=== PATIENT | female | born 1950 | race Caucasian/White ===

== ENCOUNTER 2019-05-14 01:26 | Outpatient (CLI) | payer OTHER, SELFPAY ==
--- NOTE | 2019-05-14 12:00 | DI.MAMMO_ITS ---
EXAM: MG MAMMO SCREENING CLINICAL HISTORY: Screening,z12.39 TECHNIQUE: Bilateral full field digital CC and MLO mammographic images were obtained with 3D tomosyn thesis and utilizing computer aided detection (CAD). COMPARISON: Available for comparison. FINDINGS: Masses/Architectural Distortion: There is an asymmetric density in the outer right breast seen on the craniocaudad view. Microcalcifications: No suspicious pleomorphic-type are seen. Skin Thickening/Nipple Retraction: None. IMPRESSION: 1. Asymmetric density in the outer right breast on the craniocaudad view. 2. This area should be further evaluated with spot compression view. Ultrasound may be indicated at that time. BI-RADS Cat 0 - Assessment Incomplete: Need additional imaging evaluation Breast Density - Category B - Scattered areas of fibroglandular density A negative radiographic report should not delay biopsy if a dominant or clinically suspicious mass is present. Up to ten percent of cancers are not identified on mammography. A negative report may reinforce clinical impression. Adenosis and dense breasts may obscure an underlying neoplasm. False positive reports average 6 to 10%. Patient will receive a letter notifying them of these results.
== END 2019-05-14 01:46 ==
PROVIDERS: PCP Family Medicine; Visit Provider Obstetrics & Gynecology Gynecology
DX: Z12.31 Encounter for screening mammogram for malignant neoplasm of breast (principal); R92.8 Other abnormal and inconclusive findings on diagnostic imaging of breast
CPT/HCPCS: 77063; 77067

== ENCOUNTER 2019-05-20 00:29 | Outpatient (CLI) | payer OTHER, SELFPAY ==
--- NOTE | 2019-05-20 | DI.US_ITS ---
EXAM: MG MAMMO SCREEN CALL BACK UNI and right breast ultrasound CLINICAL HISTORY: F/U ABNL MAMMO, ASYMMETRIC DENSITY IN OUTER RT BREAST. TECHNIQUE: Craniocaudal and mediolateral oblique Full Field Digital Mammography views of the right b reast with Computer Aided Diagnosis followed by Tomosynthesis and right breast ultrasound. COMPARISON: Priors available for comparison. FINDINGS: Mammography/Tomosynthesis: Masses/Architectural Distortion: None seen. Microcalcifictions: No suspicious pleomorphic-type are seen. Skin Thickening/Nipple Retraction: None. Right breast US: Echotexture: Normal appearance of the glandular tissue. Shadowing: No suspicious foci. Cyst: None. Solid lesions: None seen. Ductal dilation: None. IMPRESSION: 1. No evidence of malignancy is noted. 2. Unless there is more urgent need, follow-up screening mammography is recommended, as per [place] [employer] guidelines. BI-RADS Cat 1 - Negative Breast Density - Category B - Scattered areas of fibroglandular density The findings were discussed with the patient on the date of the examination. A negative radiographic report should not delay biopsy if a dominant or clinically suspicious mass is present. Up to ten percent of cancers are not identified on mammography. A negative report may reinforce clinical impression. Adenosis and dense breasts may obscure an underlying neoplasm. False positive reports average 6 to 10%. Patient will receive a letter notifying them of these results.
== END 2019-05-20 00:49 ==
PROVIDERS: PCP Family Medicine; Visit Provider Obstetrics & Gynecology Gynecology
DX: Z12.31 Encounter for screening mammogram for malignant neoplasm of breast (principal); R92.8 Other abnormal and inconclusive findings on diagnostic imaging of breast; N64.59 Other signs and symptoms in breast
CPT/HCPCS: 76642; 77063; 77067

== ENCOUNTER 2019-07-14 09:32 | Outpatient (CLI) | payer OTHER, SELFPAY | END 2019-07-14 09:52 | PROVIDERS: PCP Family Medicine; Visit Provider Obstetrics & Gynecology Gynecology | DX: L65.8 Other specified nonscarring hair loss (principal) | CPT/HCPCS: 84443 ==

== ENCOUNTER 2020-01-27 02:05 | Outpatient (CLI) | payer OTHER, SELFPAY ==
[2020-01-27 13:15] LABS: ALT 26 U/L (14-59); AST 20 U/L (15-37); Albumin 3.8 g/dL (3.4-5.0); Alkaline Phosphatase 64 U/L (46-116); Anion Gap 7.5 mmol/L (3-11); BUN 15 mg/dL (7-18); Bilirubin, Total 0.3 mg/dL (0.2-1.0); CO2 27.5 mmol/L (21.0-32.0); Calculated LDL 209 mg/dL (<100); Chloride 101 mmol/L (98-107); Cholesterol 283 mg/dL (<200); Estimated GFR 49.25 (mL/min/1.73m2); Glucose 87 mg/dL (74-106); HDL Cholesterol 50 mg/dL (40-60); Potassium 4.2 mmol/L (3.5-5.1); Sodium 136 mmol/L (136-145); Triglyceride 124 mg/dL (<150)
== END 2020-01-27 02:25 ==
DX: Z00.00 Encounter for general adult medical examination without abnormal findings (principal); I10 Essential (primary) hypertension; E78.5 Hyperlipidemia, unspecified; K21.9 Gastro-esophageal reflux disease without esophagitis
CPT/HCPCS: 36415; 80053; 80061

== ENCOUNTER 2020-03-25 02:52 | Outpatient (CLI) | payer OTHER, SELFPAY ==
[2020-03-25 12:38] LABS: Anion Gap 7.7 mmol/L (3-11); BUN 19 mg/dL (7-18); CO2 28.3 mmol/L (21.0-32.0); CREATININE 1.16 mg/dL (0.55-1.02); Calcium 9.2 mg/dL (8.5-10.1); Chloride 97 mmol/L (98-107); Estimated GFR 46.32 (mL/min/1.73m2); Glucose 90 mg/dL (74-106); Potassium 3.7 mmol/L (3.5-5.1); Sodium 133 mmol/L (136-145)
== END 2020-03-25 03:12 ==
DX: N28.9 Disorder of kidney and ureter, unspecified (principal)
CPT/HCPCS: 36415; 80048

== ENCOUNTER 2020-05-18 02:05 | Outpatient (CLI) | payer OTHER, SELFPAY ==
--- NOTE | 2020-05-18 07:15 | DI.MAMMO_ITS ---
EXAM: MG MAMMO SCREENING CLINICAL HISTORY: screening,Z12.39 TECHNIQUE: Bilateral full field digital CC and MLO mammographic images were obtained with 3D tomosyn thesis and utilizing computer aided detection (CAD). COMPARISON: Available for comparison. FINDINGS: Masses/Architectural Distortion: None seen. Stable asymmetry in the outer right breast on the CC view . Microcalcifications: No suspicious pleomorphic-type are seen. Skin Thickening/Nipple Retraction: None. IMPRESSION: 1. No significant interval change with no specific features of malignancy noted. 2. Unless there is more urgent need, screening mammography is recommended, as per [place] [employer] guidelines. BI-RADS Category 1 - Negative Breast Density - Category C - Heterogeneously dense Breast density category C or D implies that the patient has dense breast tissue. Dense breast tissue is very common and is not abnormal but dense breast tissue can make it harder to find cancer on a ma mmogram. Also, dense breast tissue may increase their breast cancer risk. This information about the result of the mammogram report was provided to the patient to raise their awareness. Use this report when you speak with the patient about their risks for breast cancer, which includes their family hist ory. At that time, you may recommend for more screening tests (Ultrasound or MRI) as they might be us eful based on their risk. A negative radiographic report should not delay biopsy if a dominant or clinically suspicious mass is present. Up to ten percent of cancers are not identified on mammography. A negative report may reinforce clinical impression. Adenosis and dense breasts may obscure an underlying neoplasm. False positive reports average 6 to 10%. Patient will receive a letter notifying them of these results.
== END 2020-05-18 02:25 ==
DX: Z12.31 Encounter for screening mammogram for malignant neoplasm of breast (principal)
CPT/HCPCS: 77063; 77067

== ENCOUNTER 2021-04-19 02:00 | Outpatient (CLI) | payer OTHER, SELFPAY ==
[2021-04-19 10:26] LABS: ALT 28 U/L (14-59); AST 22 U/L (15-37); Albumin 3.8 g/dL (3.4-5.0); Alkaline Phosphatase 65 U/L (46-116); Anion Gap 7.4 mmol/L (3-11); BUN 21 mg/dL (7-18); Bilirubin, Total 0.5 mg/dL (0.2-1.0); CO2 27.6 mmol/L (21.0-32.0); CREATININE 1.1 mg/dL (0.55-1.02); Calcium 9.3 mg/dL (8.5-10.1); Chloride 96 mmol/L (98-107); Glucose 79 mg/dL (74-106); Potassium 4.2 mmol/L (3.5-5.1); Sodium 131 mmol/L (136-145)
== END 2021-04-19 02:01 | disposition home or self-care (01) ==
LOC: LBO 02:00
DX: I10 Essential (primary) hypertension (principal); N28.9 Disorder of kidney and ureter, unspecified
CPT/HCPCS: 36415; 80053

== ENCOUNTER 2021-05-05 02:08 | Outpatient (CLI) | payer OTHER, SELFPAY ==
[2021-05-05 12:25] LABS: Anion Gap 4.8 mmol/L (3-11); BUN 18 mg/dL (7-18); CO2 27.2 mmol/L (21.0-32.0); CREATININE 1.1 mg/dL (0.55-1.02); Calcium 9.1 mg/dL (8.5-10.1); Chloride 98 mmol/L (98-107); Glucose 88 mg/dL (74-106); Potassium 4.1 mmol/L (3.5-5.1); Sodium 130 mmol/L (136-145)
== END 2021-05-05 02:09 | disposition home or self-care (01) ==
LOC: LBO 02:08
PROVIDERS: Visit Provider Emergency Medicine
DX: E87.1 Hypo-osmolality and hyponatremia (principal)
CPT/HCPCS: 36415; 80048

== ENCOUNTER 2021-05-19 01:28 | Outpatient (CLI) | payer OTHER, SELFPAY ==
--- NOTE | 2021-05-19 07:30 | DI.MAMMO_ITS ---
Exam(s) MAMMO SCREENING EXAM: MAMMO SCREENING CLINICAL HISTORY: screening,z12.39 TECHNIQUE: Mammograms were interpreted according to the usual protocol including computer analysis w [employer] CAD system, tomosynthesis and C-view imaging. COMPARISON: FINDINGS: The breasts are heterogeneously dense. No dominant mass or clumped microcalcification is identified in either breast. There is a new retroareolar 10 millimeter well-circumscribed nodule seen in the ri ght breast on the MLO view only comparison with prior examinations including May 2020. Breast ultr asound is suggested for further evaluation. No other significant change seen. IMPRESSION: New retroareolar right breast nodularity which is likely benign but indeterminate. Right breast ult rasound requested for further evaluation. BI-RADS Category 0 - Assessment Incomplete: Need additional imaging evaluation Breast Density - Category C - Heterogeneously dense
== END 2021-05-19 01:48 ==
DX: Z12.31 Encounter for screening mammogram for malignant neoplasm of breast (principal); R92.8 Other abnormal and inconclusive findings on diagnostic imaging of breast
CPT/HCPCS: 77063; 77067

== ENCOUNTER 2021-08-22 04:11 | Outpatient (CLI) | payer OTHER, SELFPAY ==
[2021-08-22 13:26] LABS: ALT 25 U/L (14-59); Anion Gap 9.3 mmol/L (3-11); BUN 22 mg/dL (7-18); CO2 23.7 mmol/L (21.0-32.0); CREATININE 1.2 mg/dL (0.55-1.02); Calcium 8.9 mg/dL (8.5-10.1); Chloride 101 mmol/L (98-107); Estimated GFR 44.41 (mL/min/1.73m2); Glucose 82 mg/dL (74-106); Potassium 4.2 mmol/L (3.5-5.1); Sodium 134 mmol/L (136-145)
[2021-08-22 15:31] LABS: Calculated LDL 104 mg/dL (<100); Cholesterol 178 mg/dL (<200); HDL Cholesterol 61 mg/dL (40-60); Triglyceride 65 mg/dL (<150)
== END 2021-08-22 04:12 | disposition home or self-care (01) ==
LOC: LOS 04:11
PROVIDERS: Visit Provider Family Medicine
DX: I10 Essential (primary) hypertension (principal); E78.5 Hyperlipidemia, unspecified; E87.1 Hypo-osmolality and hyponatremia
CPT/HCPCS: 36415; 80048; 80061; 84460

== ENCOUNTER 2022-02-16 01:38 | Outpatient (CLI) | payer OTHER, SELFPAY ==
[2022-02-16 12:22] LABS: HCT 35.9 % (36.0-46.0); HGB 11.9 g/dL (11.2-15.7); MCHC 33.1 % (32.0-36.0); MCV 97 fL (80-95); MPV 9.8 fL (8.0-11.0); Platelet Count 309 10^3/uL (130-400); RBC 3.72 10^6/uL (3.93-5.22); RDW 12.8 % (11.7-14.6); WBC 5.85 10^3/uL (4.4-10.8)
[2022-02-16 12:24] LABS: Bilirubin Negative (Negative); Blood Negative (Negative); Clarity Clear (Clear); Glucose Negative (Negative); Ketones Negative (Negative); Leukocyte Esterase Negative (Negative); Nitrite Negative (Negative); Specific Gravity 1.025 (1.005-1.025); Urobilinogen 0.2 EU/dL (Up TO 0.2)
[2022-02-16 12:25] LABS: Sodium, Urine 79 mmol/L
[2022-02-16 12:32] LABS: Iron 71 ug/dL (50-170); Total Iron Binding Capacity 270 ug/dL (250-450); Transferrin Sat 26 % (15-50)
[2022-02-16 12:45] LABS: Anion Gap 7.1 mmol/L (3-11); BUN 20 mg/dL (7-18); CO2 28.9 mmol/L (21.0-32.0); CREATININE 1.2 mg/dL (0.55-1.02); Calcium 9.5 mg/dL (8.5-10.1); Chloride 98 mmol/L (98-107); Estimated GFR 48.39 (mL/min/1.73m2); Glucose 70 mg/dL (74-106); Potassium 3.9 mmol/L (3.5-5.1); Sodium 134 mmol/L (136-145); TSH (W/Ref FT4) 2.11 uIU/mL (0.36-3.74)
[2022-02-16 12:46] LABS: Ferritin 287 ng/mL (8-252)
[2022-02-16 13:21] LABS: Lab Add On Test DONE
[2022-02-16 14:02] LABS: Vitamin B12 439 pg/mL (193-986)
== END 2022-02-16 01:39 | disposition home or self-care (01) ==
LOC: LOS 01:39
PROVIDERS: Family Medicine; PCP Nurse Practitioner Family; Visit Provider Family Medicine
DX: E78.5 Hyperlipidemia, unspecified (principal); E87.1 Hypo-osmolality and hyponatremia; I10 Essential (primary) hypertension; R53.83 Other fatigue; D64.9 Anemia, unspecified
CPT/HCPCS: 36415; 80048; 85027; 81003; 82607; 82728; 83540; 83550; 84300; 84443

== ENCOUNTER 2022-02-28 02:07 | Outpatient (CLI) | payer OTHER, SELFPAY ==
[2022-03-13 14:10] LABS: Specimen WB Whole Blood
== END 2022-02-28 02:08 | disposition home or self-care (01) ==
LOC: LBO 02:08
PROVIDERS: PCP Nurse Practitioner Family; Visit Provider Family Medicine
DX: R79.89 Other specified abnormal findings of blood chemistry (principal)
CPT/HCPCS: 36415; 81256

== ENCOUNTER 2022-05-02 12:15 | Outpatient (CLI) | payer OTHER, SELFPAY ==
--- NOTE | 2022-05-02 12:15 | RT.EKG_ITS ---
APPROVED REPORT Exam: Resting ECG Reason for Exam: chest pain Patient Location: O HR:62 bpm ECG Measurements Heart Rate 62 AXIS KS 179 P 69 QRSd 101 QRS 15 QT 403 T 43 QTc 410 Conclusion Sinus rhythm...normal P axis, V-rate 50- 99 Normal Electrocardiogram RSR' in V1 or V2, probably normal variant...small R' only
== END 2022-05-02 12:16 | disposition home or self-care (01) ==
LOC: DI.CM 12:16
PROVIDERS: PCP Nurse Practitioner Family; Visit Provider Nurse Practitioner Family
DX: R07.9 Chest pain, unspecified (principal)
CPT/HCPCS: 93010

== ENCOUNTER 2022-05-02 21:39 | Outpatient (REF) | payer OTHER, SELFPAY ==
[2022-05-02 21:55] LABS: Abs Immature Grans 0.02 10^3/uL (0.0-0.06); Absolute Basophil Count 0.04 10^3/uL (0.0-0.2); Absolute Eosinophil Count 0.21 10^3/uL (0.0-0.7); Absolute Lymphocyte Count 1.61 10^3/uL (1.2-3.4); Absolute Monocyte Count 0.71 10^3/uL (0.1-0.8); Absolute Neutrophil Count 2.31 10^3/uL (1.2-6.7); Basophils % 0.8; Eosinophils % 4.3; HCT 36.3 % (36.0-46.0); Immature Grans % 0.4; Lymphocytes % 32.9; MCHC 33.1 % (32.0-36.0); MCV 94 fL (80-95); MPV 9.9 fL (8.0-11.0); Monocytes % 14.5; Neutrophils % 47.1; Platelet Count 362 10^3/uL (130-400); RBC 3.87 10^6/uL (3.93-5.22)
[2022-05-02 22:03] LABS: ALT 25 U/L (14-59); AST 22 U/L (15-37); Alkaline Phosphatase 62 U/L (46-116); Amylase 75 U/L (25-115); Anion Gap 9.1 mmol/L (3-11); BUN 22 mg/dL (7-18); Bilirubin, Total 0.4 mg/dL (0.2-1.0); CO2 24.9 mmol/L (21.0-32.0); CREATININE 1.2 mg/dL (0.55-1.02); Calcium 9.9 mg/dL (8.5-10.1); Chloride 103 mmol/L (98-107); Estimated GFR 48.39 (mL/min/1.73m2); Glucose 92 mg/dL (74-106); Lipase 68 U/L (16-77); Potassium 4.7 mmol/L (3.5-5.1); Sodium 137 mmol/L (136-145); Total Protein 7.1 g/dL (6.4-8.2)
== END 2022-05-02 21:40 | disposition home or self-care (01) ==
LOC: LBN 21:39
PROVIDERS: PCP Nurse Practitioner Family; Visit Provider Nurse Practitioner Family
DX: R10.9 Unspecified abdominal pain (principal)
CPT/HCPCS: 80053; 83690; 82150; 85025

== ENCOUNTER 2023-04-11 13:23 | Outpatient (CLI) | payer OTHER, SELFPAY ==
[2023-04-11 13:13] LABS: ALT 25 U/L (14-59); AST 20 U/L (15-37); Albumin 3.6 g/dL (3.4-5.0); Alkaline Phosphatase 59 U/L (46-116); Anion Gap 6.2 mmol/L (3-11); BUN 19 mg/dL (7-18); Bilirubin, Total 0.5 mg/dL (0.2-1.0); CO2 27.8 mmol/L (21.0-32.0); CREATININE 1.2 mg/dL (0.55-1.02); Calcium 9.4 mg/dL (8.5-10.1); Calculated LDL 119 mg/dL (<100); Chloride 102 mmol/L (98-107); Cholesterol 197 mg/dL (<200); Estimated GFR 48.09 (mL/min/1.73m2); Glucose 92 mg/dL (74-106); HDL Cholesterol 64 mg/dL (40-60); Potassium 4.3 mmol/L (3.5-5.1); Sodium 136 mmol/L (136-145); Total Protein 7.2 g/dL (6.4-8.2); Triglyceride 72 mg/dL (<150)
== END 2023-04-11 13:24 | disposition home or self-care (01) ==
LOC: LBO 13:24
PROVIDERS: PCP Nurse Practitioner Family; Visit Provider Nurse Practitioner Family
DX: E78.5 Hyperlipidemia, unspecified (principal)
CPT/HCPCS: 36415; 80053; 80061

== ENCOUNTER → 2023-04-23 01:45 | Outpatient (CLI) | payer OTHER, SELFPAY ==
--- NOTE | 2023-04-23 08:00 | DI.MAMMO_ITS ---
Exam(s) MAMMO SCREENING EXAM: MAMMO SCREENING CLINICAL HISTORY: screening,Z12.39 TECHNIQUE: Mammograms were interpreted according to the usual protocol including computer analysis w [employer] CAD system, tomosynthesis and C-view imaging. COMPARISON: 2013 through 2021 FINDINGS: The breasts are composed of heterogeneously dense fibroglandular densities, Breast Density category C . No suspicious masses or suspicious microcalcifications are seen. No skin thickening or abnormal axill shahbaz lymph nodes are seen. There has been no significant change from prior exams. IMPRESSION: BI-RADS Category 1, Negative mammogram. Yearly screening mammography is recommended. Breast Density Category C, heterogeneously Dense. The mammogram demonstrates the patient's breast tissue is dense. Dense breast tissue is very common a nd is not abnormal but dense breast tissue can make it harder to find cancer on a mammogram. Also, de nse breast tissue may increase breast cancer risk. This information about the result of the mammogram report was provided to the patient to raise their awareness. Use this report when you speak with the patient about their risks for breast cancer, which includes their family history. At that time, you may recommend additional screening tests (Ultrasound or MRI) as they might be useful based on their r isk. A negative radiographic report should not delay biopsy if a dominant or clinically suspicious mass is present. Up to ten percent of cancers are not identified on mammography. A negative report may reinforce clinical impression. Adenosis and dense breasts may obscure an underlying neoplasm. False positive reports average 6 to 10%.
== END ==
PROVIDERS: PCP Nurse Practitioner Family; Visit Provider Nurse Practitioner Family
DX: Z12.31 Encounter for screening mammogram for malignant neoplasm of breast (principal)
CPT/HCPCS: 77063; 77067

== ENCOUNTER 2023-11-05 01:55 | Outpatient (CLI) | payer OTHER, SELFPAY ==
--- OUTSIDE RECORDS SUMMARY | 2023-11-05 01:57 | XMS_ITS | Encounter Summary ---
Author Organization [facility] [place] [address] Care Team Providers Care Zinc Miner Name Role Phone Ignacio Liang HAYDEN Primary Care Provider Encounter Details Date Type Department Care Team (Late st Contact Info) Description 05/20/2019 Ancillary Procedure Radiology Library [place] [facility] [address] Armani Brenner MD [address] [place] [address] [address] [place] [address] Social History Tobacco Use Types Packs/Day Years Used Date Smoking Tobacco: Never Sex and Gender Information Value Date Recorded Sex Assigned at Not on file Gender Identity Not on file Sexual Orientation Not on file documented as of this encounter Plan of Treatment Not on file documented as of this encounter Procedures Procedure Name Priority Date/Time Associated Diagnosis Comments FILM LIBRARY-STORAGE ONLY US BREAST Routine 05/20/2019 12:00 AM EDT documented in this encounter Results * Film Library Storage Only US Breast (05/20/2019 12:00 AM EDT) Narrative [facility] - 05/26/2021 12:16 PM EDT This exam is auto-finalizing. It's purpose is for storage only. Armani Brenner MD IMG FILM LIBRARY OR DERABLES [place], [place] documented in this encounter Visit Diagnoses Not on filedocumented in this encounter Care Teams Zinc Miner Relationship Specialty Start Date End Date Liang Pierre DO [address] [place] [address] [address] [place] [address] PCP - General 02/01/10 03/22/22 documented as of this encounter
--- OUTSIDE RECORDS SUMMARY | 2023-11-05 01:57 | XMS_ITS | Continuity of Care Document ---
Author Name [facility] Organization [facility] Care Team Providers Care Road Cutter Name Role Phone [facility] Unavailable Unavailable Social History Combined list of available smoking, tobacco, and other social history from Department of Defense and Veterans Affairs facilities. Social History Type Response Date Comment Sourc e This section is an empty social history section. [facility]
--- OUTSIDE RECORDS SUMMARY | 2023-11-05 01:57 | XMS_ITS | Encounter Summary ---
Author Organization [facility] [place] [address] Care Team Providers Care Software Applications Architect Name Role Phone Ignacio, Liang HAYDEN Primary Care Provider Encounter Details Date Type Department Care Team (Late st Contact Info) Description 10/26/2015 Ancillary Procedure Radiology Library [place] [facility] [place] [address] Armani Brenner MD [address] [place] [address] [address] [place] [address] Social History Tobacco Use Types Packs/Day Years Used Date Smoking Tobacco: Never Sex and Gender Information Value Date Recorded Sex Assigned at Not on file Gender Identity Not on file Sexual Orientation Not on file documented as of this encounter Plan of Treatment Not on file documented as of this encounter Procedures Procedure Name Priority Date/Time Associated Diagnosis Comments FILM LIBRARY STORAGE ONLY MAMMO Routine 10/26/2015 12:00 AM EDT documented in this encounter Results * Film Library- Storage Only Mammo (10/26/2015 12:00 AM EDT) Narrative [facility] - 05/26/2021 12:18 PM EDT This exam is auto-finalizing. It's purpose is for storage only. Armani Brenner MD IMG FILM LIBRARY OR DERABLES [place], [place] documented in this encounter Visit Diagnoses Not on filedocumented in this encounter Care Teams Software Applications Architect Relationship Specialty Start Date End Date Liang Pierre DO [address] [place] [address] [address] [place] [address] PCP - General 02/01/10 03/22/22 documented as of this encounter
--- OUTSIDE RECORDS SUMMARY | 2023-11-05 01:57 | XMS_ITS | Encounter Summary ---
Author Organization [facility] [place] [address] Care Team Providers Care Nurse Advisor Name Role Phone Unavailable Primary Care Provider Unavailabl e Encounter Details Date Type Department Care Team (Late st Contact Info) Description 12/31/2003 Ancillary Procedure Radiology Library [place] [address] Armani Brenner MD [address] [place] [address] Social History Tobacco Use Types Packs/Day Years Used Date Smoking Tobacco: Never Assessed Sex and Gender Information Value Date Recorded Sex Assigned at Not on file Gender Identity Not on file Sexual Orientation Not on file documented as of this encounter Plan of Treatment Not on file documented as of this encounter Procedures Procedure Name Priority Date/Time Associated Diagnosis Comments FILM LIBRARY STORAGE ONLY MAMMO Routine 12/31/2003 12:00 AM EDT documented in this encounter Results * Film Library- Storage Only Mammo (12/31/2003 12:00 AM EDT) Narrative [facility] - 05/26/2021 1:41 PM EDT This exam is auto-finalizing. It's purpose is for storage only. Armani Brenner MD IMG FILM LIBRARY OR DERABLES [place], [place] documented in this encounter Visit Diagnoses Not on filedocumented in this encounter
--- OUTSIDE RECORDS SUMMARY | 2023-11-05 01:57 | XMS_ITS | Encounter Summary ---
Author Organization [facility] [place] [address] Care Team Providers Care Signal System Testing Maintainer Name Role Phone Liang Pierre DO Primary Care Provider [phone] Encounter Details Date Type Department Care Team (Late st Contact Info) Description 05/26/2021 Telephone Hematology and Oncology at [facility] [place] [id number] Jenae Sandoval Social History Tobacco Use Types Packs/Day Years Used Date Smoking Tobacco: Never Sex and Gender Information Value Date Recorded Sex Assigned at Not on file Gender Identity Not on file Sexual Orientation Not on file documented as of this encounter Miscellaneous Notes * Telephone Encounter - Jenae Sandoval - 05/26/2021 10:07 AM EDT Maranda Tran 1950 [id number] Referring provider: Armani Brenner Date of Referral: 05.26.2021 Please review outside breast imaging dated: 05.25.2021 Reason for exam and clinical history: Right breast solid nodule 6 o'clcock Category: 4 Questions to be answered: ?more imaging, ? BX Sending Institution: [facility] Patient would like treatment at: [facility] Call pt at: Home Phone Not on file. documented in this encounter Plan of Treatment Not on file documented as of this encounter Visit Diagnoses Not on filedocumented in this encounter Care Teams Signal System Testing Maintainer Relationship Specialty Start Date End Date Liang Pierre DO [address] [place] [address] [address] [place] [address] PCP - General 02/01/10 03/22/22 documented as of this encounter
--- OUTSIDE RECORDS SUMMARY | 2023-11-05 01:57 | XMS_ITS | Encounter Summary ---
Author Organization [facility] [place] [address] Care Team Providers Care Brake Repairer Air Name Role Phone Ignacio Liang HAYDEN Primary Care Provider Encounter Details Date Type Department Care Team (Late st Contact Info) Description 05/19/2021 Ancillary Procedure Radiology Library [place] [address] Armani Brenner MD [address] [place] [address] [address] [place] [address] Social History Tobacco Use Types Packs/Day Years [...] Comments FILM LIBRARY STORAGE ONLY MAMMO Routine 05/19/2021 12:00 AM EST documented in this encounter Results * Film Library- Storage Only Mammo (05/19/2021 12:00 AM EST) Narrative [facility] - 05/26/2021 12:15 PM EDT This exam is auto-finalizing. It's purpose is for storage only. Armani Brenner MD IMG FILM LIBRARY OR DERABLES [place], [place] documented in this encounter Visit Diagnoses Not on filedocumented in this encounter Care Teams Brake Repairer Air Relationship Specialty Start Date End Date Liang Pierre DO [address] [place] [address] [address] [place] [address] PCP - General 02/01/10 03/22/22 documented as of this encounter
--- OUTSIDE RECORDS SUMMARY | 2023-11-05 01:57 | XMS_ITS | Encounter Summary ---
Author Organization [facility] [place] [address] Care Team Providers Care Associate Marketing Manager Name Role Phone Ignacio Liang HAYDEN Primary Care Provider [phone] Encounter Details Date Type Department Care Team (Late st Contact Info) Description 05/14/2019 Ancillary Procedure Radiology Library [place] [address] Armani Brenner MD [address] [place] [address] [address] [place] [address] Social History Tobacco Use Types Packs/Day Years [...] Comments FILM LIBRARY STORAGE ONLY MAMMO Routine 05/14/2019 12:00 AM EST documented in this encounter Results * Film Library- Storage Only Mammo (05/14/2019 12:00 AM EST) Narrative [facility] - 05/26/2021 12:17 PM EDT This exam is auto-finalizing. It's purpose is for storage only. Armani Brenner MD IMG FILM LIBRARY OR DERABLES [place], [place] documented in this encounter Visit Diagnoses Not on filedocumented in this encounter Care Teams Associate Marketing Manager Relationship Specialty Start Date End Date Liang Pierre DO [address] [place] [address] [address] [place] [address] PCP - General 02/01/10 03/22/22 documented as of this encounter
--- OUTSIDE RECORDS SUMMARY | 2023-11-05 01:57 | XMS_ITS | Encounter Summary ---
Author Organization [facility] [place] [address] Care Team Providers Care Termite Control Service Representative Name Role Phone Unavailable Primary Care Provider Unavailabl e Encounter Details Date Type Department Care Team (Late st Contact Info) Description 02/14/2007 Ancillary Procedure Radiology Library [place] [facility] [place] [address] Armani Brenner MD [address] [place] [address] Social History Tobacco Use Types Packs/Day Years [...] Comments FILM LIBRARY STORAGE ONLY MAMMO Routine 02/14/2007 12:00 AM EST documented in this encounter Results * Film Library- Storage Only Mammo (02/14/2007 12:00 AM EST) Narrative [facility] - 05/26/2021 1:40 PM EDT This exam is auto-finalizing. It's purpose is for storage only. Armani Brenner MD IMG FILM LIBRARY OR DERABLES [place], [place] documented in this encounter Visit Diagnoses Not on filedocumented in this encounter
--- OUTSIDE RECORDS SUMMARY | 2023-11-05 01:57 | XMS_ITS | Encounter Summary ---
Author Organization [facility] [place] [address] Care Team Providers Care Marketing Analytics Specialist Name Role Phone Liang Pierre DO Primary Care Provider [phone] Reason for Visit * (Routine) - Closed Specialty Diagnoses / Procedures Referred By Elfego sarmiento Referred To Contact Radiology Diagnoses Breast nodule Procedures Request for 2nd read Mammo Armani Brenner MD [address] [place] [address] Referral ID Status Reason Start Date Expiration Date Visits Re quested Visits Authorized [id number] Closed 05/26/2021 05/26/2022 1 1 Encounter Details Date Type Department Care Team (Late st Contact Info) Description 05/26/2021 2:25 PM EDT Ancillary [place] [address] Armani Brenner MD [address] [place] [address] Breast nodule Social History Tobacco Use Types Packs/Day Years Used Date Smoking Tobacco: Never Sex and Gender Information Value Date Recorded Sex Assigned at Not on file Gender Identity Not on file Sexual Orientation Not on file documented as of this encounter Plan of Treatment Not on file documented as of this encounter Procedures Procedure Name Priority Date/Time Associated Diagnosis Comments REQUEST FOR 2ND READ MAMMO Routine 05/26/2021 2:09 PM EDT Breast nodule documented in this encounter Results * Request for 2nd read Mammo (05/26/2021 2:09 PM EDT) Anatomical Region Laterality Modality SO Impressions 05/26/2021 3:18 PM EDT BI-RADS Category 0: Incomplete-Need Additional Imaging Evaluation and/or Prior Mammograms for Comparison ??1 cm retroareolar mass 1 cm from the nipple RECOMMENDATION: Additional mammographic views and ultrasound with biopsy if appropriate Please note: The interpretation of the [facility] Breast Imaging Radiologist subspecialist may differ from the original radiologists interpretation. This is usually not due to a deficiency of the original interpreting radiologist, rather due to the greater skill level afforded by sub-specialization in the field and/or reasonable variations in interpretations. If you have a concern regarding the D-H interpretation you may contact the [facility] at . Thank you for letting us participate in the care of this patient. ??If you are a health care provider and have any questions regarding this report, please contact the number below. ??For patients who have questions please contact the health child care attendant that requested your imaging first. ? Electronically signed by: Victorina Zhang MD, [facility] ([phone]), at 05/26/2021 3:18 PM Narrative 05/26/2021 3:18 PM EDT INTERPRETATION OF OUTSIDE BREAST IMAGING I have been asked to consult on this patient by Dr. Brenner because he/she believes a review of this study may change or alter the care of this patient. STUDIES FROM: [facility] DATES: Bilateral screening mammograms 05/19/2021. Limited ultrasound of the RIGHT breast from 05/25/2021 CLINICAL HISTORY: Right breast solid nodule 6 o'clock; CAT 4; Sending Institution [facility]; Date of exam [id number]; I believe a reinterpretation of this exam may alter care of Patient. Yes; Right breast solid nodule 6 o'clock; CAT 4; ? More imaging; ? BX. ?? COMPARISONS: Multiple priors, the last 2020 TECHNIQUE: Bilateral CC, bilateral MLO, 3-D imaging was used FINDINGS: The breasts are of scattered fibroglandular density LEFT breast: Normal and unchanged RIGHT breast: On the MLO view only there is a 1 cm round density in the retroareolar area which appears to be change since prior mammograms. 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 Ultrasound images show an approximately 0.9 cm oval well-defined uniformly hypoechoic mass with an echogenic capsule and increased through transmission at 6:00 1 cm from the nipple but this appears to be fairly deep within the breast tissue. I am not sure if the mammographically observed lesion is the same as the ultrasound observed lesion and would recommend that we obtain coned compression and true lateral views of the RIGHT breast to assess if the retroareolar mass is real. If it is and concordant with the ultrasound findings we will then perform ultrasound-guided biopsy. If the ultrasound abnormality is concordant with the stable deep central mammographic abnormality, no further management as needed Procedure Note Victorina Zhang MD - 05/26/2021 INTERPRETATION OF OUTSIDE BREAST IMAGING I have been asked to consult on this patient by Dr. Brenner becausehe/she believes a review of this study may change or alter the care of thispatient. STUDIES FROM: [facility] DATES: Bilateral screening mammograms 05/19/2021. Limited ultrasound of theRIGHT breast from 05/25/2021 CLINICAL HISTORY: Right breast solid nodule 6 o'clock; CAT 4; Sending Institution [facility]; Date of exam [id number]; I believe a reinterpretation ofthis exam may alter care of Patient. Yes; Right breast solid nodule 6 o'clock;CAT 4; ? More imaging; ? BX. COMPARISONS: Multiple priors, the last 2020 TECHNIQUE: Bilateral CC, bilateral MLO, 3-D imaging was used FINDINGS: The breasts are of scattered fibroglandular density LEFT breast: Normal and unchanged RIGHT breast: On the MLO view only there is a 1 cm round density in the retroareolar area which appears to be change since prior mammograms. 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 Deshawn not sure if the mammographically observed lesion is the same as theultrasound observed lesion and would recommend that we obtain coned compression andtrue lateral views of the RIGHT breast to assess if the retroareolar mass connor. If it is and concordant with the ultrasound findings we will then perform ultrasound-guided biopsy. If the ultrasound abnormality is concordant withthe stable deep central mammographic abnormality, no further management asneeded IMPRESSION BI-RADS Category 0: Incomplete-Need Additional Imaging Evaluation and/orPrior Mammograms for Comparison 1 cm retroareolar mass 1 cm from the nipple RECOMMENDATION: Additional mammographic views and ultrasound with biopsy if appropriate Please note: The interpretation of the [facility] BreastImaging Radiologist subspecialist may differ from the original radiologists interpretation. This is usually not due to a deficiency of the original interpreting radiologist, rather due to the greater skill level affordedby sub-specialization in the field and/or reasonable variations ininterpretations. If you have a concern regarding the -H interpretation [facility] at . Thank you for letting us participate in the care of this patient. If youare a health care provider and have any questions regarding this report,please contact the number below. For patients who have questions please contactthe health child care attendant that requested your imaging first. Armani Brenner MD IMG OUTSIDE INTERPR ETATION ORDERABLES documented in this encounter Visit Diagnoses Diagnosis Breast nodule Other (abnormal) findings on radiological examination of breast documented in this encounter Care Teams Marketing Analytics Specialist Relationship Specialty Start Date End Date Liang Pierre DO [address] [place] [address] [address] [facility] [address] [place] [address] PCP - General 02/01/10 03/22/22 documented as of this encounter
--- OUTSIDE RECORDS SUMMARY | 2023-11-05 01:57 | XMS_ITS | Encounter Summary ---
[place] [address] Care Team Providers Care Psychiatric Technician Name Role Phone Omayra Esposito CURLY Primary Care Provider [phone] Reason for Referral * Consultation (Routine) - Closed Specialty Diagnoses / Procedures Referred By Elfego sarmiento Referred To Contact Genetics Diagnoses Other specified abnormal findings of blood chemistry Johnny Horn MD [address] [place] [address] Pearl Chavez, [address] [address] Referral ID Status Reason Start Date Expiration Date V isits Requested Visits Authorized [id number] Closed Consult, Test & Treat PCP Updated and/or Approved 03/23/2022 03/23/2023 6 6 Encounter Details Date Type Department Care Team (Late st Contact Info) Description 03/23/2022 Transcribe Orders eD Incoming Referrals [phone] Johnny Horn MD [address] [place], [place] [address] Other specified abnormal findings of blood chemistry Social History Tobacco Use Types Packs/Day Years Used Date Smoking Tobacco: Never Sex and Gender Information Value Date Recorded Sex Assigned at Not on file Gender Identity Not on file Sexual Orientation Not on file documented as of this encounter Plan of Treatment Scheduled Referrals Name Type Priority Associated Diagnoses Orde r Schedule Referral to Genetics Outpatient Referral Routine Other specified abnormal findings of blood chemistry Ordered: 03/23/2022 documented as of this encounter Visit Diagnoses Diagnosis Other specified abnormal findings of blood chemistry documented in this encounter Care Teams Psychiatric Technician Relationship Specialty Start Date End Date Omayra Esposito RD [address] [address] PCP - General Dietitian 03/23/22 documented as of this encounter
--- OUTSIDE RECORDS SUMMARY | 2023-11-05 01:57 | XMS_ITS | Encounter Summary ---
Author Organization [facility] Address [address] [place] [address] Care Team Providers Care Armament Mechanic Name Role Phone Unavailable Primary Care Provider Unavailabl e Encounter Details Date Type Department Care Team (Late st Contact Info) Description 03/14/2007 Results Only [facility] - [facility] conversion [address] [place] [address] Abebe Avila MD [address] [place] [address] Social History Tobacco Use Types Packs/Day Years Used Date Smoking Tobacco: Never Assessed Sex and Gender Information Value Date Recorded Sex Assigned at Not on file Gender Identity Not on file Sexual Orientation Not on file documented as of this encounter Plan of Treatment Not on file documented as of this encounter Procedures Procedure Name Priority Date/Time Associated Diagnosis Comments SURGICAL PATHOLOGY Routine 03/14/2007 0:00 EST documented in this encounter Results * SURGICAL PATHOLOGY (03/14/2007 0:00 EST) Pathology Report: SURGICAL PATHOLOGY REPORT Reports generated via electronic interface contain original data; however they are lacking the format of the original report. Caution should be taken when reading/interpreti ng unformatted reports. Name: ? SUMAN TRAN ? Accession #: ? [id number] ? : ? 1950 (Age: 56) ??F ? Collect Date: ? 03/14/2007 ? Location: ? [facility] ? Receive Date: ? 03/15/2007 ? Provider: ABEBE AVILA MD Copy to: SALLIE JEAN BAPTISTE DO ? Final Pathologic Diagnosis: ? Colon, splenic flexure, polyp, biopsies: - Fragments of hyperplastic polyp. ?? Document reviewed and electronically signed by: MANI RAMOS MD Report ??Date: 03/18/2007 12:52 By the signature above, the attending physician certifies that he/she has personally conducted a gross and/or microscopic examination of the described specimens and rendered or confirmed the above diagnosis. Specimen(s) Received: ? Bx splenic flexure polyp Clinical History: ? Screening; hx LLQ and lower left flank pain Gross Description: ? Received in Hollande's fixative labelled Marc and splenic flexure bx polyp are three betts-pink irregular soft tissue fragments which average 0.2 x 0.1 x 0.1 cm. ??Submitted entirely in one cassette. ??(Dr. Castorena)/[facility] End of Report ELOISE LAUREANO 03/14/2007 03/15/2007 13: 58 EST Abebe Avila MD PATHOLOGY ORDERABLE S [facility] [address] [place] [address] documented in this encounter Visit Diagnoses Not on filedocumented in this encounter
--- OUTSIDE RECORDS SUMMARY | 2023-11-05 01:57 | XMS_ITS | Referral Summary ---
Author Organization [facility] Address [address] [place] [address] Care Team Providers Care Sweet Pickle Maker Name Role Phone Marcio Rao MD Primary Care Provider [phone] Social History Tobacco Use Types Packs/Day Years Used Date Smoking Tobacco: Never Assessed Interpersonal Safety Answer Date Record ed Physically Hurt Never 10/12/2019 Verbally Threaten Not on file 10/12/2019 Sex and Gender Information Value Date Recorded Sex Assigned at Not on file Gender Identity Not on file Sexual Orientation Not on file Plan of Treatment Not on file Care Teams Sweet Pickle Maker Relationship Specialty Start Date End Date Marcio Rao MD PCP - General 03/20/17
--- OUTSIDE RECORDS SUMMARY | 2023-11-05 01:57 | XMS_ITS | Encounter Summary ---
[facility] [place] [id number] Care Team Providers Care Ditching Machine Operator Name Role Phone Omayra Esposito RD Primary Care Provider [phone] Encounter Details Date Type Department Care Team (Latest Contact Info) Description 08/14/2022 Travel Social History Tobacco Use Types Packs/Day Years Used Date Smoking Tobacco: Never Sex and Gender Information Value Date Recorded Sex Assigned at Not on file Gender Identity Not on file Sexual Orientation Not on file documented as of this encounter Plan of Treatment Not on file documented as of this encounter Visit Diagnoses Not on filedocumented in this encounter Care Teams Ditching Machine Operator Relationship Specialty Start Date End Date Omayra Esposito RD [address] [address] PCP - General Dietitian 03/23/22 documented as of this encounter
--- OUTSIDE RECORDS SUMMARY | 2023-11-05 01:57 | XMS_ITS | Encounter Summary ---
Author Organization [facility] Address [address] [place] [address] Care Team Providers Care Lead Mason Tender Name Role Phone Unavailable Primary Care Provider Unavailabl e Encounter Details Date Type Department Care Team (Late st Contact Info) Description 03/14/2001 Results Only [facility] - Map conversion [address] [place] [address] Marcio Adair MD [address] [place] [phone] Social History Tobacco Use Types Packs/Day Years Used Date Smoking Tobacco: Never Assessed Sex and Gender Information Value Date Recorded Sex Assigned at Not on file Gender Identity Not on file Sexual Orientation Not on file documented as of this encounter Plan of Treatment Not on file documented as of this encounter Procedures Procedure Name Priority Date/Time Associated Diagnosis Comments SURGICAL PATHOLOGY Routine 03/14/2001 0:00 EST documented in this encounter Results * SURGICAL PATHOLOGY (03/14/2001 0:00 EST) Pathology Report: SURGICAL PATHOLOGY REPORT Reports generated via electronic interface contain original data; however they are lacking the format of the original report. Caution should be taken when reading/interpretin g unformatted reports. Name: ? JANEE SUMAN ? Accession #: ? [id number] ? : ? 1950 (Age: 50) ??F ? Collect Date: ? 03/14/2001 ? Location: ? [facility] ? Receive Date: ? 03/15/2001 ? Provider: CAREN ADAIR MD Copy to: SALLIE JEAN BAPTISTE DO SALLIE HARRIS MD ? Final Pathologic Diagnosis: ? Tissue at esophagogastric junction, biopsy: 1. ?Squamous mucosa with features suggestive of gastroesophageal reflux. 2. ?No columnar mucosa identified. Comment: ? Few intraepithelial eosinophils are identified. ??(Dr. Freeman)/ljn Document reviewed and electronically signed by: Cristino Freeman MD Report ??Date: 03/18/2001 16:52 By the signature above, the attending physician certifies that he/she has personally conducted a gross and/or microscopic examination of the described specimens and rendered or confirmed the above diagnosis. Specimen(s) Received: ? Bx EG jct Clinical History: ? Dyspepsia ??normal EG + D Gross Description: ? Received in Hollande' s fixative labelled Candia and EG junction is a betts-thorne, friable, 0.3 x 0.2 x0.2 cm soft tissue fragment. ??The specimen is entirely submitted in one cassette. ??(Dayton Wheeler)/dtl End of Report ELOISE LAUREANO 03/14/2001 03/15/2001 9:3 1 EST Marcio Adair MD PATHOLOGY ORDERABLES [facility] [address] [place] [address] documented in this encounter Visit Diagnoses Not on filedocumented in this encounter
--- OUTSIDE RECORDS SUMMARY | 2023-11-05 01:57 | XMS_ITS | Clinical Summary ---
Author Organization [facility] [place] [address] Care Team Providers Care Bulk Picker Name Role Phone Omayra Esposito RD Primary Care Provider [phone] Allergies Active Allergy Reactions Criticality Noted Date Comments Adhesive Bandage CIS - Rash Alcohol CIS - Unknown Cis Free Text Allergy rubbbing alcohol. CIS - Rash Povidone-Iodine CIS - Unknown Medications Medication Sig Dispensed Refills Start Date End Date Status hydrochlorothiazide (HYDRODIURIL) 25 mg tablet 25mg, PO, Once daily 08/04/2009 Active doxycycline (VIBRA-TABS) 100 mg tablet 100 MG = 1 Tablet(s), PO, Once daily 08/04/2009 Active RANITIDINE HCL (ZANTAC ORAL) 08/04/2009 Active ibuprofen (ADVIL;MOTRIN) 600 mg tablet 08/04/2009 Active metroNIDAZOLE (METROCREAM) 0.75 % creamIndications:Pe rioral dermatitis Apply topically. Once or twice daily for perioral dermatitis 15 g 1 04/11/2011 Active hydrOXYzine (ATARAX) 10 mg tabletIndications:D ermatitis Take by mouth. 1 or 2 tabs as needed at bedtime for itching. 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 Itching on forearms 04/11/2011 Perioral dermatitis 04/11/2011 Immunizations Name Administration Dates Next Due TD Adult 06/07/1999 Family History Medical History Relation Comments Breast Cancer Neg Hx Social History Tobacco Use Types Packs/Day Years Used Date Smoking Tobacco: Never Sex and Gender Information Value Date Recorded Sex Assigned at Not on file Gender Identity Not on file Sexual Orientation Not on file Plan of Treatment Health Maintenance Due Date Last Done Comments CT Colonography 1950 Colonoscopy 1950 Colorectal Cancer Screening 1950 FIT DNA 1950 FIT 1950 Sigmoidoscopy (10 year) with FIT yearly 1950 Sigmoidoscopy 1950 Hepatitis C Screening 1968 Tdap adult 1969 Breast Cancer Share Decision Needed 1990 Breast Cancer screening 1990 Zoster vaccine (1 of 2) 2000 Advance Directive 2005 Tetanus vaccine 06/06/2009 06/07/1999 Bone Density Scan 11/04/2015 Pneumoccocal Vaccine: 65+ (1 of 1 - PCV) 11/04/2015 Covid-19 Vaccine (1 - season) 2022 Influenza (Flu) vaccine (1 o f 1 - Influenza standard series) 11/11/2023 Care Teams Bulk Picker Relationship Specialty Start Date End Date Omayra Esposito RD [address] [address] PCP - General Dietitian 03/23/22
--- OUTSIDE RECORDS SUMMARY | 2023-11-05 01:57 | XMS_ITS | Encounter Summary ---
Author Organization [facility] Address [address] [place] [address] Care Team Providers Care Ice Maker Name Role Phone Liang Pierre DO Primary Care Provider [phone] Encounter Details Date Type Department Care Team (Latest Contact Info) Description 03/19/2017 11:49 EST - 03/19/2017 23:59 EST Hospital Encounter [address] [address] Unknown, Provider, Discharge Disposition: Home or Self Care Social History Tobacco Use Types Packs/Day Years Used Date Smoking Tobacco: Never Assessed Sex and Gender Information Value Date Recorded Sex Assigned at Not on file Gender Identity Not on file Sexual Orientation Not on file documented as of this encounter Discharge Disposition Disposition Code Departure Means Destination Home or Self [facility] documented in this encounter Plan of Treatment Not on file documented as of this encounter Visit Diagnoses Not on filedocumented in this encounter Care Teams Ice Maker Relationship Specialty Start Date End Date Liang Pierre DO [address] [place] [address] PCP - General 01/19/15 03/19/17 documented as of this encounter
--- OUTSIDE RECORDS SUMMARY | 2023-11-05 01:57 | XMS_ITS | Encounter Summary ---
Author Organization [facility] [place] [address] Care Team Providers Care Animal Assisted Therapist Name Role Phone Unavailable Primary Care Provider Unavailabl e Encounter Details Date Type Department Care Team (Late st Contact Info) Description 01/10/2006 Ancillary Procedure Radiology [place] [address] Armani Brenner MD [address] [place] [phone] Social History Tobacco Use Types Packs/Day Years [...] Comments FILM LIBRARY STORAGE ONLY MAMMO Routine 01/10/2006 12:00 AM EST documented in this encounter Results * Film Library- Storage Only Mammo (01/10/2006 12:00 AM EST) Narrative [facility] - 05/26/2021 1:40 PM EDT This exam is auto-finalizing. It's purpose is for storage only. Armani Brenner MD IMG FILM LIBRARY OR DERABLES [place], [place] documented in this encounter Visit Diagnoses Not on filedocumented in this encounter
--- OUTSIDE RECORDS SUMMARY | 2023-11-05 01:57 | XMS_ITS | Encounter Summary ---
Author Organization [facility] [place] [address] Care Team Providers Care Insurance Claim Auditor Name Role Phone Liang Pierre DO Primary Care Provider Encounter Details Date Type Department Care Team (Late st Contact Info) Description 05/20/2019 12:05 AM EDT Ancillary Procedure [place]iology [place] [address] Armani Brenner MD [address] [place] [id number] Social History Tobacco Use Types Packs/Day Years [...] Comments FILM LIBRARY STORAGE ONLY MAMMO Routine 05/20/2019 12:05 AM EDT documented in this encounter Results * Film Library- Storage Only Mammo (05/20/2019 12:05 AM EDT) Narrative [facility] - 05/26/2021 12:17 PM EDT This exam is auto-finalizing. It's purpose is for storage only. Armani Brenner MD IMG FILM LIBRARY OR DERABLES [place], [place] documented in this encounter Visit Diagnoses Not on filedocumented in this encounter Care Teams Insurance Claim Auditor Relationship Specialty Start Date End Date Liang Pierre DO [address] [place] [address] [address] [place] [address] PCP - General 02/01/10 03/22/22 documented as of this encounter
--- OUTSIDE RECORDS SUMMARY | 2023-11-05 01:57 | XMS_ITS | Encounter Summary ---
Author Organization [facility] Address [facility] [place] [address] Care Team Providers Care Resource Room Special Education Teacher Name Role Phone Liang Pierre DO Primary Care Provider [phone] Encounter Details Date Type Department Care Team (Latest Contact Info) Description 06/03/2021 12:43 PM EDT - 06/03/2021 11:59 PM EDT Hospital En[place] [address] Victorina Zhang MD [facility] [place] [address] Abnormal finding on breast imaging Discharge Disposition: Home Social History Tobacco Use Types Packs/Day Years Used Date Smoking Tobacco: Never Sex and Gender Information Value Date Recorded Sex Assigned at Not on file Gender Identity Not on file Sexual Orientation Not on file documented as of this encounter Medications at Time of Discharge Medication Sig Dispensed Refills Start Date End Date metroNIDAZOLE (METROCREAM) 0.75 % creamIndications:Perior al dermatitis Apply topically. Once or twice daily for perioral dermatitis 15 g 1 04/11/2011 hydrOXYzine (ATARAX) 10 mg tabletIndications:Vale titis Take by mouth. 1 or 2 tabs as needed at bedtime for itching. 30 tablet 1 04/11/2011 hydrochlorothiazide (HYDRODIURIL) 25 mg tablet 25mg, PO, Once daily 08/04/2009 doxycycline (VIBRA-TABS) 100 mg tablet 100 MG = 1 Tablet(s), PO, Once daily 08/04/2009 RANITIDINE HCL (ZANTAC ORAL) 08/04/2009 ibuprofen (ADVIL;MOTRIN) 600 mg tablet 08/04/2009 documented as of this encounter Plan of Treatment Not on file documented as of this encounter Procedures Procedure Name Priority Date/Time Associated Diagnosis Comments MAMMO BREAST US LIMITED RIGHT Routine 06/03/2021 2:00 PM EDT Abnormal finding on breast imaging documented in this encounter Results * US Breast Limited Right (06/03/2021 2:00 PM EDT) Anatomical Region Laterality Modality Breast Right Mammography Impressions 06/03/2021 2:29 PM EDT No mammographic or directed ultrasound evidence of malignancy with attention to the right lower central breast. Resume annual screening. BI-RADS Category 2: Benign Findings Regular screening mammograms starting between age 40 and 50 reduces the risk of from breast cancer. * ??All screening tests have both risks and benefits. These risks and benefits should be assessed for each individual patient through discussion with their provider to determine their preferred breast cancer screening schedule. * ??Women should report any breast changes to a health care provider right away. * ??Some women, because of their family history, a genetic tendency, or other factors, should be screened with annual breast MRI as well as with mammograms. (The number of women who fall into this category is very small). Patients and health care providers should discuss the history of each patient to decide if earlier screening and/or breast MRI are appropriate. * ??Screening should continue as long as a woman is in good health and is expected to live 10 years or longer. * ??Screening mammography may not detect 10-15% of breast cancers. Thank you for letting us participate in the care of this patient. ??If you are a health care provider and have any questions regarding this report, please contact the number below. ??For patients who have questions please contact the health resident care aide that requested your imaging first. ? Thank you for letting us participate in the care of this patient. ??If you are a health care provider and have any questions regarding this report, please contact the number below. ??For patients who have questions please contact the health resident care aide that requested your imaging first. ? Electronically signed by: Clarisa Cárdenas MD, [facility] ([phone]), at 06/03/2021 2:29 PM Narrative 06/03/2021 2:29 PM EDT EXAMINATION: MAMMO DIAGNOSTIC CAD AND ALYSON RIGHT CLINICAL HISTORY: Abnormal finding on breast imaging TECHNIQUE: Spot compression CC, spot compression MLO and true lateral views were obtained of the right breast. 2-D direct digital capture, 3-D tomosynthesis and computer aided detection (CAD) were used.. I personally performed high-resolution ultrasound of the right lower central breast following the technologist. COMPARISON: Outside imaging 05/19/2021, 05/25/2021 FINDINGS: There is no persistent mass in the right lower central breast. There is stable duct ectasia. There is a stable oval mass in the right lower central to slightly outer quadrant posterior third. Directed ultrasound demonstrates no evidence of discrete solid lesion, abnormal acoustical shadowing, or cyst. The questioned finding reflects sonographic evidence of a duct overlying benign fat locule which is not three-dimensional. Specifically there is no intraductal mass or suspicious solid mass in the right lower central breast anterior third. Victorina Zhang MD IMG MAMMO ORDERABLES documented in this encounter Visit Diagnoses Diagnosis Abnormal finding on breast imaging Other (abnormal) findings on radiological examination of breast documented in this encounter Care Teams Resource Room Special Education Teacher Relationship Specialty Start Date End Date Liang Pierre DO [address] [place] [address] PCP - General 02/01/10 03/22/22 documented as of this encounter
--- OUTSIDE RECORDS SUMMARY | 2023-11-05 01:57 | XMS_ITS | Encounter Summary ---
Author Organization [facility] [place] [address] Care Team Providers Care Hotel Baggage Handler Name Role Phone Omayra Esposito CURLY Primary Care Provider [phone] Reason for Visit * Consultation (Routine) - Closed Specialty Diagnoses / Procedures Referred By Elfego sarmiento Referred To Contact Genetics Diagnoses Other specified abnormal findings of blood chemistry Johnny Horn MD [address] [place] [address] Pearl Chavez LGC [address] [place] [id number] Referral ID Status Reason Start Date Expiration Date V isits Requested Visits Authorized [id number] Closed Consult, Test & Treat PCP Updated and/or Approved 03/23/2022 03/23/2023 6 6 Encounter Details Date Type Department Care Team (Latest Contact Info) Description 08/14/2022 2:00 PM EDT Clinical Support Medical Genetics at [address] [address] Pearl Chavez LGC [address] [place] [id number] Carrier of hemochromatosis HFE gene mutation Social History Tobacco Use Types Packs/Day Years Used Date Smoking Tobacco: Never Sex and Gender Information Value Date Recorded Sex Assigned at Not on file Gender Identity Not on file Sexual Orientation Not on file documented as of this encounter Progress Notes * Pearl Chavez LGC - 08/14/2022 2:00 PM EDT Maranda Tran is a 71 y.o. 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 Due to this history a genetic consultation was recommended to review these results and their implications. She came to the visit today with her (Eric). She told me she inquired with her PCP if shecould be anemic - which prompted iron studies and this testing. I don't have her ferratin or TBIC labs on file - but she states she is often low/anemic. Regarding these HFE results - she stated they were not reviewed with her in detail which prompted the referral to learn more about what they mean for her. A three generation pedigree was obtained at the visit today. The family history was not notable forindividuals with iron overload. 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 Hemochromatosis is a common condition. There are several classifications of hemochromatosis. Clinical hemochromatosis is an individual who is known to have end organ damage due to iron overload. Biochemical hemochromatosis is when the only evidence an individual has of iron overload is in their blood. These two forms of hemochromatosis may not necessarily be genetic. Secondary iron overload may result from ingested iron in foods, cookware, and medicines, as well as parenteral iron from iron injections Hereditary hemochromatosis is a form of hemochromatosis when an individual has both iron overload and gene mutations that are known to increase the risk to develop iron overload. There are at least six types of hereditary hemochromatosis, which are classified depending on the age of onset and other factors such as genetic cause and mode of inheritance. The genetic cause for each type is as follows: type 1- HFE, type 2- HAMP or HFE2/HJV, type 3- TFR2, type 4- ICS08C8, type 5- FTH1, and type 6- FTL. Hemochromatosis is inherited in an autosomal recessive manner through pathogenic variants in theHFE, HAMP, HFE2/HJV, or TFR2 genes or an autosomal dominant manner through pathogenic variants in the BXR04L9, FTH1, or FTL genes. HFE variants account for approximately 90% of clinical hemochromatosis. We know that there are two mutations, C282Y and H63D that are associated with HFE hemochromatosis. In individuals with two copies of the C282Y the risk for clinical symptoms due to iron overload is approximately 5%. While individuals with one copy of C282Y and one copy of H63D may have evidence of iron overload in their blood, the risk for developing clinically significant iron overload is approximately 1%. Individuals withtwo H63D variants are not considered to have HFE hemochromatosis and be at increased risk for developing clinical iron overload. In some rare individuals with a clinical or biochemical diagnosis of hereditary hemochromatosis, only one gene change is identified, which indicates that they may have changes in other genes, additional mutations within this same gene or environmental factors that are causing their iron overload. These individuals then are not considered to have HFE hemochromatosis. Complications in HFE hemochromatosis occur most often due to external risk factors or medical conditions that in combination with the genetic mutations result in iron overload. Iron overload is the result of abnormally high absorption of iron by the gut which results in excessive storage of iron in various organs, particularly in the liver, skin, pancreas, heart, joints, and testes. If left untreated, this can lead to abdominal pain, weakness, fatigue, weight loss, liver disease, heart disease,arthritis and diabetes. If iron overload is detected early and treated by periodic blood donation, the above symptoms can be prevented. All individuals at high risk should have periodic screening for iron overload so that if it is indicated, treatment and additional evaluation can start as soon as possible. In the absence of iron overload, no additional imagining or evaluations are recommended. High risk individuals should also avoid taking a multivitamin that contains iron, iron supplements, vitamin C supplements and uncooked seafood. Additionally excessive alcohol should also be avoided. 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 We discussed that this does not infer increased risk for iron overload. Reviewed recessive inheritance and implications for other family members also at increased risk to carry this HFE gene variant. If other first degree relatives are interested in testing they should request referral to genetics provider in their area. If she or her other providers have concerns regarding her iron level (such as anemia) they can monitor routinely with labs. Patient expresses good understanding of what we discussed today and asked many thoughtful questions. No follow up planned, though I encouraged her to contact me with additional concerns. Pearl Chavez MS, [facility] Licensed Genetic Counselor [phone] This was a 32-minute consultation, of which 32 minutes of the visit were spent in [id number] discussions regarding the clinical diagnosis and care planning. Family agreed with the plans discussed. documented in this encounter Plan of Treatment Scheduled Referrals Name Type Priority Associated Diagnoses Orde r Schedule Referral to Genetics Outpatient Referral Routine Other specified abnormal findings of blood chemistry Ordered: 03/23/2022 documented as of this encounter Visit Diagnoses Diagnosis Carrier of hemochromatosis HFE gene mutation documented in this encounter Care Teams Hotel Baggage Handler Relationship Specialty Start Date End Date Omayra Esposito RD [address] [address] PCP - General Dietitian 03/23/22 documented as of this encounter
--- OUTSIDE RECORDS SUMMARY | 2023-11-05 01:57 | XMS_ITS | Encounter Summary ---
Author Organization [facility] [place] [address] Care Team Providers Care Telephone Services Sales Representative Name Role Phone Unavailable Primary Care Provider Unavailabl e Encounter Details Date Type Department Care Team (Late st Contact Info) Description 01/02/2005 Ancillary Procedure Radiology Library [place] [address] Armani Brenner MD [address] [place] [id number] Social History Tobacco Use Types Packs/Day Years [...] Comments FILM LIBRARY STORAGE ONLY MAMMO Routine 01/02/2005 12:00 AM EDT documented in this encounter Results * Film Library- Storage Only Mammo (01/02/2005 12:00 AM EDT) Narrative [facility] - 05/26/2021 1:40 PM EDT This exam is auto-finalizing. It's purpose is for storage only. Armani Brenner MD IMG FILM LIBRARY OR DERABLES [place], [place] documented in this encounter Visit Diagnoses Not on filedocumented in this encounter
--- OUTSIDE RECORDS SUMMARY | 2023-11-05 01:57 | XMS_ITS | Encounter Summary ---
Author Organization [facility] Address [address] [place] [address] Care Team Providers Care Ceramic Worker Name Role Phone Liang Pierre DO Primary Care Provider [phone] Encounter Details Date Type Department Care Team (Late st Contact Info) Description 03/19/2017 Results Only [facility] [phone] Karlos Guevara MD [address] [place] [address] [address] [place], [place] [id number] Social History Tobacco Use Types Packs/Day Years Used Date Smoking Tobacco: Never Assessed Sex and Gender Information Value Date Recorded Sex Assigned at Not on file Gender Identity Not on file Sexual Orientation Not on file documented as of this encounter Plan of Treatment Not on file documented as of this encounter Procedures Procedure Name Priority Date/Time Associated Diagnosis Comments SURGICAL PATHOLOGY Routine 03/19/2017 16 :42 EST documented in this encounter Results * SURGICAL PATHOLOGY (03/19/2017 16:42 EST) Pathology Report: SURGICAL PATHOLOGY REPORT Reports generated via electronic interface contain original data; however they are lacking the format of the original report. Caution should be taken when reading/interpret ing unformatted reports. Name: ? SUMAN TRAN ? Accession #: ? [id number] ? : ? 1950 (Age: 66) ??F ? Collect Date: ? 03/19/2017 ? Location: ? [facility] ? Receive Date: ? 03/19/2017 ? Provider: KARLOS GUEVARA MD Copy to: SPARKLE SINGLETON MD ? Final Pathologic Diagnosis: A. COLON, TRANSVERSE POLYP, BIOPSY: - ??Fragments of hyperplastic polyp. B. COLON, DESCENDING POLYP, BIOPSY: - ??Colonic mucosa with surface hyperplastic changes. - ??Deeper levels examined. Document reviewed and electronically signed by: KAM BARCLAY MD Report ??Date: 03/21/2017 11:49 By the signature above, the attending physician certifies that he/she has personally conducted a gross and/or microscopic examination of the described specimens and rendered or confirmed the above diagnosis. Specimen(s) Received: A. ??Transverse colon polyp B. ??Descending colon polyp Clinical History: Hx colon polyps Gross Description: A. ?Received in formalin labelled with proper patient identification (initials N, G) and transverse colon polyp is a single fragment of betts-pink tissue (0.2 x 0.2 x 0.2 cm). The specimen is submitted entirely in A1. B. ?Received in formalin labelled with proper patient identification (initials N, G) and descending colon polyp is a single fragment of betts-pink tissue (0.2 x 0.2 x 0.2 cm). The specimen is submitted entirely in B1. PATI Harris (ASCP) 03/19/2017 4:56 PM End of Report [facility] 03/19/2017 16:4 2 EST 03/19/2017 16:42 EST Karlos Guevara MD PATHOLOGY ORDERA MELISSA [facility] [address] [place] [address] documented in this encounter Visit Diagnoses Not on filedocumented in this encounter Care Teams Ceramic Worker Relationship Specialty Start Date End Date Liang Pierre DO [address] [place] [address] PCP - General 01/19/15 03/19/17 documented as of this encounter
--- OUTSIDE RECORDS SUMMARY | 2023-11-05 01:57 | XMS_ITS | Encounter Summary ---
[facility] [place] [address] Care Team Providers Care Steel Rod Buster Name Role Phone Ignacio, Liang HAYDEN Primary Care Provider Encounter Details Date Type Department Care Team (Late st Contact Info) Description 12/11/2013 Ancillary Procedure Radiology Library at [facility] [place] [address] Armani Brenner MD [address] [place] [address] [address] [place] [address] Social History Tobacco Use Types Packs/Day Years [...] Comments FILM LIBRARY STORAGE ONLY MAMMO Routine 12/11/2013 12:00 AM EDT documented in this encounter Results * Film Library- Storage Only Mammo (12/11/2013 12:00 AM EDT) Narrative [facility] - 05/26/2021 1:38 PM EDT This exam is auto-finalizing. It's purpose is for storage only. Armani Brenner MD IMG FILM LIBRARY OR DERABLES [place], [place] documented in this encounter Visit Diagnoses Not on filedocumented in this encounter Care Teams Steel Rod Buster Relationship Specialty Start Date End Date Liang Pierre DO [address] [place] [address] [address] [place] [address] PCP - General 02/01/10 03/22/22 documented as of this encounter
--- OUTSIDE RECORDS SUMMARY | 2023-11-05 01:57 | XMS_ITS | Encounter Summary ---
Author Organization [facility] Address [facility] [place] [address] Care Team Providers Care Cutting Machine Tender Decorative Name Role Phone Liang Pierre DO Primary Care Provider [phone] Reason for Visit * Reason Comments Dermatitis Encounter Details Date Type Department Care Team (Late st Contact Info) Description 04/11/2011 10:00 AM EST Follow-Up Dermatology [facility] [place] [address] Kojo Redmond III, MD [facility] DR JULIENNE RAWLS-DERMATOLGY [place] [id number] Perioral dermatitis; Dermatitis; Atopy; Itching on forearms Discharge Disposition: Home Social History Tobacco Use Types Packs/Day Years Used Date Smoking Tobacco: Never Sex and Gender Information Value Date Recorded Sex Assigned at Not on file Gender Identity Not on file Sexual Orientation Not on file documented as of this encounter Progress Notes * Kojo Redmond III, MD - 04/11/2011 10:33 AM EST DERMATOLOGY ESTABLISHED PATIENT CLINIC NOTE Date of service: 04/11/2011 Maranda Tran : 1950 Provider: Kojo Redmond MD PROBLEM: pruritic rash on arms SKIN HISTORY: perioral dermatitis, improved with minimal activity at present. HPI Maranda Tran is a 60 y.o. year old female. She is here today because of a rash she gets sporadically on her arms. It is very itchy particularly in the evening. She does not have the rash now butstates her skin is bumpy. She has a history of sensitive skin and gets atopic lesions in the antecubital fossae. ADR: Allergies Allergen Reactions ??? Cis Free Text Allergy rubbbing alcohol. CIS - Rash ??? Povidone-iodine CIS - Unknown ??? Alcohol CIS - Unknown ??? Adhesive Bandage CIS - Rash ROS General: feeling well Skin: denies other skin complaints EXAM General: NAD, pleasant, cooperative Skin: Significant skin findings: A. Mild erythema on arms, no papules or pustules, no scale. Erythema is most noted in the right antecubital fossae, none on left. B. One or two erythematous papules on chin and around mouth ASSESSMENT/PLAN: A. Probable eczema and or brachio-radial pruritis. I cannot make a firm diagnosis with out seeing the rash. I explained this to the patient. We recommended - Sensitive Skin products and a list was provided. She may try some Sarna anti - itch lotion. She uses Benadryl at bedtime which helps but wears of quickly. She will try hydroxyzine 10 - 20 mg at bedtime for the itching. The next time the rashappears, she will call to be seen and re-evaluated. We will try to work her in and see what is going on. B. Perioral dermatitis- under good control She would like a maintenance medication. She does not need an oral antibiotic at this point so we advised her to try some metronidazole 0.75% cream once or twice daily when needed. Call if problems arise. Note initiated by: .Alexandra Arreguin LPN Routed to physician for review and changes: Kojo Redmond MD Section of Dermatology [facility] documented in this encounter Plan of Treatment Not on file documented as of this encounter Visit Diagnoses Diagnosis Perioral dermatitis Rosacea Dermatitis Contact dermatitis and other eczema, due to unspecified cause Atopy Other allergy, other than to medicinal agents Itching on forearms Unspecified pruritic disorder documented in this encounter Care Teams Cutting Machine Tender Decorative Relationship Specialty Start Date End Date Liang Pierre DO [address] [place] [address] PCP - General 02/01/10 03/22/22 documented as of this encounter
--- OUTSIDE RECORDS SUMMARY | 2023-11-05 01:57 | XMS_ITS | Encounter Summary ---
Author Organization [facility] [place] [address] Care Team Providers Care Lozenge Maker Name Role Phone Unavailable Primary Care Provider Unavailabl e Encounter Details Date Type Department Care Team (Late st Contact Info) Description 04/09/2009 Ancillary Procedure Radiology Library [place] [address] Armani Brenner MD [address] [place] [id number] Social History Tobacco Use Types Packs/Day Years [...] Comments FILM LIBRARY STORAGE ONLY MAMMO Routine 04/09/2009 12:00 AM EST documented in this encounter Results * Film Library- Storage Only Mammo (04/09/2009 12:00 AM EST) Narrative [facility] - 05/26/2021 1:39 PM EDT This exam is auto-finalizing. It's purpose is for storage only. Armani Brenner MD IMG FILM LIBRARY OR DERABLES [place], [place] documented in this encounter Visit Diagnoses Not on filedocumented in this encounter
--- OUTSIDE RECORDS SUMMARY | 2023-11-05 01:57 | XMS_ITS | Encounter Summary ---
Author Organization [facility] [place] [address] Care Team Providers Care Glass Blowing Instructor Name Role Phone Ignacio Liang HAYDEN Primary Care Provider Encounter Details Date Type Department Care Team (Late st Contact Info) Description 05/18/2020 Ancillary Procedure Radiology Library at [facility] [place] [address] Armani Brenner MD [address] [place] [address] [address] [place] [address] Social History Tobacco Use Types Packs/Day Years [...] Comments FILM LIBRARY STORAGE ONLY MAMMO Routine 05/18/2020 12:00 AM EST documented in this encounter Results * Film Library- Storage Only Mammo (05/18/2020 12:00 AM EST) Narrative [facility] - 05/26/2021 12:16 PM EDT This exam is auto-finalizing. It's purpose is for storage only. Armani Brenner MD IMG FILM LIBRARY OR DERABLES [place], [place] documented in this encounter Visit Diagnoses Not on filedocumented in this encounter Care Teams Glass Blowing Instructor Relationship Specialty Start Date End Date Liang Pierre DO [address] [place] [address] [address] [place] [address] PCP - General 02/01/10 03/22/22 documented as of this encounter
--- OUTSIDE RECORDS SUMMARY | 2023-11-05 01:57 | XMS_ITS | Encounter Summary ---
Author Organization [facility] [place] [address] Care Team Providers Care Wood Machine Carver Name Role Phone Ignacio, Liang HAYDEN Primary Care Provider Encounter Details Date Type Department Care Team (Late st Contact Info) Description 11/08/2011 Ancillary Procedure Radiology Library at [facility] [place] [address] Armani Brenner MD [address] [place] [address] [address] [place] [address] Social History Tobacco Use Types Packs/Day Years [...] Comments FILM LIBRARY STORAGE ONLY MAMMO Routine 11/08/2011 12:00 AM EDT documented in this encounter Results * Film Library- Storage Only Mammo (11/08/2011 12:00 AM EDT) Narrative [facility] - 05/26/2021 1:39 PM EDT This exam is auto-finalizing. It's purpose is for storage only. Armani Brenner MD IMG FILM LIBRARY OR DERABLES [place], [place] documented in this encounter Visit Diagnoses Not on filedocumented in this encounter Care Teams Wood Machine Carver Relationship Specialty Start Date End Date Liang Pierre DO [address] [place] [address] [address] [place] [address] PCP - General 02/01/10 03/22/22 documented as of this encounter
--- OUTSIDE RECORDS SUMMARY | 2023-11-05 01:57 | XMS_ITS | Encounter Summary ---
Author Organization [facility] [place] [address] Care Team Providers Care Store Clerk Checker Name Role Phone Liang Pierre DO Primary Care Provider Encounter Details Date Type Department Care Team (Late st Contact Info) Description 05/25/2021 Ancillary Procedure Radiology Library [place] [facility] [address] Armani Brenner MD [address] [place] [address] [address] [place] [address] Social History Tobacco Use Types Packs/Day Years [...] Comments FILM LIBRARY-STORAGE ONLY US BREAST Routine 05/25/2021 12:00 AM EDT documented in this encounter Results * Film Library Storage Only US Breast (05/25/2021 12:00 AM EDT) Narrative RAD - 05/26/2021 12:15 PM EDT This exam is auto-finalizing. It's purpose is for storage only. Armani Brenner MD IMG FILM LIBRARY OR DERABLES [place], [place] documented in this encounter Visit Diagnoses Not on filedocumented in this encounter Care Teams Store Clerk Checker Relationship Specialty Start Date End Date Liang Pierre DO [address] [place] [address] [address] [place] [address] PCP - General 02/01/10 03/22/22 documented as of this encounter
--- OUTSIDE RECORDS SUMMARY | 2023-11-05 01:57 | XMS_ITS | Encounter Summary ---
Author Organization [facility] Address [facility] [place] [address] Care Team Providers Care Riveting Machine Operator Name Role Phone Liang Pierre DO Primary Care Provider [phone] Encounter Details Date Type Department Care Team (Latest Contact Info) Description 06/03/2021 12:40 PM EDT - 06/03/2021 12:42 PM EDT Hospital [place] [address] Victorina Zhang MD [facility] DR [place] [address] Abnormal finding on breast imaging Discharge Disposition: [...] g 1 04/11/2011 hydrOXYzine (ATARAX) 10 mg tabletIndications:Reeder titis Take by mouth. 1 or 2 [...] Name Priority Date/Time Associated Diagnosis Comments MAMMO DIAGNOSTIC CAD AND SERGEY RIGHT Routine 06/03/2021 1:22 PM EDT Abnormal finding on breast imaging documented in this encounter Results * Mammo Diagnostic Cad and Sergey Right (06/03/2021 1:22 PM EDT) Anatomical Region Laterality Modality Breast Right Mammography Impressions 06/03/2021 2:19 PM EDT No mammographic or directed ultrasound [...] who have questions please contact the health healthcare translator that requested your imaging first. ? Narrative 06/03/2021 2:19 PM EDT EXAMINATION: MAMMO DIAGNOSTIC CAD AND SERGEY RIGHT CLINICAL HISTORY: Abnormal finding on breast [...] breast documented in this encounter Care Teams Riveting Machine Operator Relationship Specialty Start Date End Date Liang Pierre DO [address] [place] [address] PCP - General 02/01/10 03/22/22 documented as of this encounter
--- OUTSIDE RECORDS SUMMARY | 2023-11-05 01:57 | XMS_ITS | Clinical Summary ---
Author Organization [facility] Address [address] [place] [address] Care Team Providers Care Pre Sales Network Engineer Name Role Phone Marcio Rao MD Primary Care Provider [phone] Social History Tobacco Use Types Packs/Day Years Used Date Smoking Tobacco: Never Assessed Interpersonal Safety Answer Date Record ed Physically Hurt Never 10/12/2019 Verbally Threaten Not on file 10/12/2019 Sex and Gender Information Value Date Recorded Sex Assigned at Not on file Gender Identity Not on file Sexual Orientation Not on file Plan of Treatment Health Maintenance Due Date Last Done Comments Hepatitis C Screen 1950 RSV Immunization ( o r 60+ Years) (1 - 1-dose 60+ series) 2010 Fall Risk Screening 11/04/2015 COVID-19 Vaccine (2022- season) 2022 Care Teams Pre Sales Network Engineer Relationship Specialty Start Date End Date Marcio Rao MD PCP - General 03/20/17
--- OUTSIDE RECORDS SUMMARY | 2023-11-05 01:57 | XMS_ITS | Encounter Summary ---
Author [facility] [place] [address] Care Team Providers Care Cloth Winder Machine Operator Name Role Phone Liang Pierre DO Primary Care Provider Encounter Details Date Type Department Care Team (Latest Contact Info) Description 06/03/2021 Travel Social History Tobacco Use Types Packs/Day Years Used Date Smoking Tobacco: Never Sex and Gender Information Value Date Recorded Sex Assigned at Not on file Gender Identity Not on file Sexual Orientation Not on file documented as of this encounter Plan of Treatment Not on file documented as of this encounter Visit Diagnoses Not on filedocumented in this encounter Care Teams Cloth Winder Machine Operator Relationship Specialty Start Date End Date Liang Pierre DO [address] [place] [address] [address] [place] [address] PCP - General 02/01/10 03/22/22 documented as of this encounter
--- NOTE | 2023-11-05 06:15 | ETT_ITS ---
APPROVED REPORT Exam: Exercise Treadmill Patient Location: Out-Patient Room/Bed: Stress Nurse: Daisha Peña RN Ordering Provider:JUSTYN CARTER VIRGIL, Contact Number: [phone] BMI: 33.85 Baseline Rhythm: Sinus Rhythm Indications: chest pain Medical History Medical History: anxiety, HTN, hearing loss, HLD, GERD, obesity Cardiac Medications: atorvastatin, sumatriptin succinate, lorazepam, omeprazole, escitalopram oxalate , losartan Allergies: latex, adhesive, alcohol, iodine, bupropion, propanolol, venlafexine, ranitidine Cardiac Risk Factors: family hx, HLD, HTN, obesity Previous Cardiac Procedures: None Pretest Chest Pain Characteristics: No chest pain Exercise History: Sedentary Physical Disabilities: n/a Lung Sounds: Clear to auscultation Heart Sounds: Regular Stress Test Details Test: Exercise stress testing was performed using a Raymon protocol. Rest Stress HR Resting HR Supine: 63 bpm Max Heart Rate (APMHR): 147 bpm Resting HR Standin bpm Target HR (85% APMHR): 125 bpm Max HR Achieved: 136 bpm % of APMHR: 93 Recovery HR: 82 bpm HR response to stress: Normal HR response to stress BP Resting BP Supine: 136/74 mmHg Resting BP Standin/78 mmHg Max BP: 164/52 mmHg Recovery BP: 148/64 mmHg BP response to stress: Normal blood pressure response to stress. ECG Resting ECG: Sinus Rhythm Ectopy: None Stress ECG: Sinus Tachycardia ST Change: No significant ST segment changes noted Arrhythmia: rare PVCs Recovery ECG: Sinus Rhythm Recovery ST Change: No significant ST segment changes noted Recovery Arrhythmia: rare PVCs Clinical Reason for Termination: Target HR Achieved Stress Symptoms: n/a Exercise duration: 05 min56 sec Highest Stage Reached: Stage 2: 2.5 mph at 12% grade. Exercise capacity: 7.05 METs Angina Score: None Cash Treadmill Score: 5.4 Rate Pressure Product: [id number] Stress ECG Conclusion 1. Resting electrocardiogram was normal 2. Patient exercised on the Raymon protocol and completed a workload of 7 METS, above average exercise capacity for age 3. Normal heart rate and blood pressure response to exercise. The patient achieved 93% of maximal pr edicted heart rate for age 4. There was no electrocardiographic evidence of myocardial ischemia 5. There were no significant dysrhythmias Cash Treadmill Score is 5.4 which is Low risk. Stress Test Summary STAGE Time (mins) Speed (mph) Grade (%) HR BP SpO2 SYMPTOMS METS Supine 63 136/74 Standing 71 118/78 1 3 1.7 10 115 4.5 2 6 2.5 12 136 7 1 min recovery 124 152/70 3 min recovery 83 164/52 6 min recovery 82 148/64
== END 2023-11-05 02:15 ==
PROVIDERS: PCP Nurse Practitioner Family; Visit Provider Nurse Practitioner Family
DX: R07.9 Chest pain, unspecified (principal)
CPT/HCPCS: 93017

== ENCOUNTER 2024-04-02 11:45 | Outpatient (CLI) | payer OTHER, SELFPAY ==
--- NOTE | 2024-04-02 11:45 | RT.EKG_ITS ---
APPROVED REPORT Exam: Resting ECG Reason for Exam: ? irregular Patient Location: O HR:66 bpm ECG Measurements Heart Rate 66 AXIS [place] 205 P 60 QRSd 101 QRS 5 QT 385 T 34 QTc 404 Conclusion Sinus rhythm...normal P axis, V-rate 50- 99 RSR' in V1 or V2, probably normal variant...small R' only Baseline wander in lead(s) V1,V2,V3,V4,V5,V6
== END 2024-04-02 11:46 | disposition home or self-care (01) ==
LOC: DI.CM 11:46
PROVIDERS: PCP Nurse Practitioner Family; Visit Provider Nurse Practitioner Family
DX: R00.0 Tachycardia, unspecified (principal)
CPT/HCPCS: 93010

== ENCOUNTER 2024-04-02 21:36 | Outpatient (REF) | payer OTHER, SELFPAY ==
--- OUTSIDE RECORDS SUMMARY | 2024-04-02 21:37 | XMS_ITS | Encounter Summary ---
[place] [address] Care Team Providers Care Bulldozer Mechanic Name Role Phone Omayra Esposito CURLY Primary Care Provider [phone] Reason for Referral * Consultation (Routine) - Closed Specialty Diagnoses / Procedures Referred By Elfego sarmiento Referred To Contact Genetics Diagnoses Other specified abnormal findings of blood chemistry Johnny Horn MD [address] [place] [address] Pearl Chavez, [address] [address] Referral ID Status Reason Start Date Expiration Date V isits Requested Visits Authorized [id number] Closed Consult, Test & Treat PCP Updated and/or Approved 03/23/2022 03/23/2023 6 6 Encounter Details Date Type Department Care Team (Late st Contact Info) Description 03/23/2022 Transcribe Orders eD Incoming Referrals [phone] Johnny Horn MD [address] [place], [place] [address] Other specified abnormal findings of blood chemistry [...] chemistry documented in this encounter Care Teams Bulldozer Mechanic Relationship Specialty Start Date End Date Omayra Esposito RD [address] [address] PCP - General Dietitian 03/23/22 documented as of this encounter
--- OUTSIDE RECORDS SUMMARY | 2024-04-02 21:37 | XMS_ITS | Encounter Summary ---
Author Organization [facility] [place] [address] Care Team Providers Care Optometry Teacher Name Role Phone Omayra Esposito CURLY Primary Care Provider [phone] Reason for Visit * Consultation (Routine) - Closed Specialty Diagnoses / Procedures Referred By Elfego sarmiento Referred To Contact Genetics Diagnoses Other specified abnormal findings of blood chemistry Johnny Horn MD [address] [place] [address] Pearl Chavez LGC [address] [place] [id number] Referral ID Status Reason Start Date Expiration Date V isits Requested Visits Authorized [id number] Closed Consult, Test & Treat PCP Updated and/or Approved 03/23/2022 03/23/2023 6 6 Encounter Details Date Type Department Care Team (Latest Contact Info) Description 08/14/2022 2:00 PM EDT Clinical Support Medical Genetics at [address] [address] Pearl Chavez LGC [address] [place] [phone] Carrier of hemochromatosis HFE gene mutation Social [...] or HFE2/HJV, type 3- TFR2, type 4- JYR02N4, type 5- FTH1, and type 6- FTL. Hemochromatosis is inherited in an autosomal recessive manner through pathogenic variants in theHFE, HAMP, HFE2/HJV, or TFR2 genes or an autosomal dominant manner through pathogenic variants in the FNV10N6, FTH1, or FTL genes. HFE variants account [...] me with additional concerns. Pearl Chavez MS, [facility] Licensed Genetic Counselor [phone] This was a 32-minute consultation, of which 32 minutes of the visit were spent in [id number] discussions regarding the clinical diagnosis and care [...] mutation documented in this encounter Care Teams Optometry Teacher Relationship Specialty Start Date End Date Omayra Esposito RD [address] [address] PCP - General Dietitian 03/23/22 documented as of this encounter
--- OUTSIDE RECORDS SUMMARY | 2024-04-02 21:37 | XMS_ITS | Encounter Summary ---
Author Organization [facility] [place] [address] Care Team Providers Care Pottery Decoration Designer Name Role Phone Omayra Esposito RD Primary Care Provider [phone] Encounter Details Date Type Department Care Team [...] on filedocumented in this encounter Care Teams Pottery Decoration Designer Relationship Specialty Start Date End Date Omayra Esposito RD [address] [address] PCP - General Dietitian 03/23/22 documented as of this encounter
--- OUTSIDE RECORDS SUMMARY | 2024-04-02 21:37 | XMS_ITS | Encounter Summary ---
Author [facility] [place] [address] Care Team Providers Care Director Of District Office Name Role Phone Liang Pierre DO Primary [...] on filedocumented in this encounter Care Teams Director Of District Office Relationship Specialty Start Date End Date Liang Pierre DO [address] [place] [address] [address] [place] [address] PCP - General 02/01/10 03/22/22 documented as of this encounter
--- OUTSIDE RECORDS SUMMARY | 2024-04-02 21:37 | XMS_ITS | Clinical Summary ---
Author Organization [facility] [place] [address] Care Team Providers Care Auto Fleet Manager Name Role Phone Omayra Esposito RD Primary Care Provider [phone] Allergies Active Allergy Reactions Criticality Noted Date [...] 04/11/2011 Immunizations Name Administration Dates Next Due Td Adult (not absorbed) 06/07/1999 Family History Medical History Relation Comments [...] 1950 Sigmoidoscopy 1950 Hepatitis C Screening 1968 Breast Cancer Share Decision Needed 1990 Breast Cancer screening 1990 Tetanus/Diphtheria/Pertussis Vaccines (1 - Tdap) 06/0706/07/1999 Pneumoccocal Vaccine: 50+ (1 of 1 - PCV) 2000 Zoster vaccine (1 of 2) 2000 Advance Directive 2005 Bone Density Scan 11/04/2015 Covid-19 Vaccine (1 - season) 2023 Influenza (Flu) vaccine (1 o f 1 - Influenza standard series) 11/11/2023 Care Teams Auto Fleet Manager Relationship Specialty Start Date End Date Omayra Esposito RD [address] [address] PCP - General Dietitian 03/23/22
--- OUTSIDE RECORDS SUMMARY | 2024-04-02 21:38 | XMS_ITS | Encounter Summary ---
Author Organization [facility] Address [address] [place] [address] Care Team Providers Care Hotel Maintenance Technician Name Role Phone Liang Pierre DO Primary Care Provider [phone] Encounter Details Date Type Department Care Team (Latest Contact Info) Description 03/19/2017 11:49 EST - 03/19/2017 23:59 EST Hospital Encounter [address] [address] Unknown, Provider, MD Discharge Disposition: Home or Self Care Social History Tobacco Use Types Packs/Day Years Used Date Smoking Tobacco: Never Assessed Comments Unknown Sex and Gender Information Value Date Recorded Sex Assigned at Not on file Legal Sex Female 18:28 EST Gender Identity Not on file Sexual Orientation Not on file documented as of this encounter Discharge Disposition Disposition Code Departure Means Destination Home or Self Half-Way documented in this encounter Plan of Treatment Not on file documented as of this encounter Visit Diagnoses Not on filedocumented in this encounter Care Teams Hotel Maintenance Technician Relationship Specialty Start Date End Date Liang Pierre DO PCP - General 01/19/15 03/19/17 documented as of this encounter
--- OUTSIDE RECORDS SUMMARY | 2024-04-02 21:38 | XMS_ITS | Encounter Summary ---
Author Organization [facility] [place] [address] Care Team Providers Care Bulk Cooler Installer Name Role Phone Liang Pierre DO Primary Care Provider [phone] Encounter Details Date Type Department Care Team (Late st Contact Info) Description 11/08/2011 Ancillary Procedure Radiology Library at [facility] [place] [address] Armani Brenner MD [address] [place] [phone] Social History Tobacco Use Types Packs/Day Years [...] Only Mammo (11/08/2011 12:00 AM EDT) Narrative [facility] - 05/26/2021 1:39 PM EDT This exam is auto-finalizing. It's purpose is for storage only. Armani Brenner MD IMG FILM LIBRARY OR DERABLES [facility] [place] documented in this encounter Visit Diagnoses Not on filedocumented in this encounter Care Teams Bulk Cooler Installer Relationship Specialty Start Date End Date Liang Pierre DO [address] [place] [address] [address] [place] [address] PCP - General 02/01/10 03/22/22 documented as of this encounter
--- OUTSIDE RECORDS SUMMARY | 2024-04-02 21:38 | XMS_ITS | Clinical Summary ---
Author Organization [facility] Address [address] [place] [address] Care Team Providers Care Wheel And Pinion Inspector Name Role Phone Marcio Rao MD Primary Care Provider [phone] Social History Tobacco Use Types Packs/Day Years Used Date Smoking Tobacco: Never Assessed Interpersonal Safety Answer Date Record ed Physically Hurt Never 10/12/2019 Verbally Threaten Not on file 10/12/2019 Comments Unknown Sex and Gender Information Value Date Recorded Sex Assigned at Not on file Legal Sex Female 18:28 EST Gender Identity Not on file Sexual Orientation Not on file Plan of Treatment Health Maintenance Due Date Last Done Comments Hepatitis C Screen 1950 Fall Risk Screening 11/04/2015 COVID-19 Vaccine ( season) 2023 RSV Immunization ( o r 60+ Years) (1 - 1-dose 75+ series) 2025 Care Teams Wheel And Pinion Inspector Relationship Specialty Start Date End Date Marcio Rao MD [address] [facility] [place] [id number] PCP - General 03/20/17
--- OUTSIDE RECORDS SUMMARY | 2024-04-02 21:38 | XMS_ITS | Encounter Summary ---
Author Organization [facility] Address [facility] [place] [address] Care Team Providers Care Sleep Scientist Name Role Phone Liang Pierre DO Primary Care Provider [phone] Reason for Visit * Reason Comments Dermatitis Encounter Details Date Type Department Care Team (Late st Contact Info) Description 04/11/2011 10:00 AM EST Follow-Up Dermatology [facility] [place] [address] Kojo Redmond III, MD Perioral dermatitis; Dermatitis; Atopy; Itching on forearms [...] changes: Kojo Redmond MD Section of Dermatology [facility] documented in this encounter Plan of Treatment Not on file documented as of this encounter Visit Diagnoses Diagnosis Perioral dermatitis Rosacea Dermatitis Contact dermatitis and other eczema, due to unspecified cause Atopy Other allergy, other than to medicinal agents Itching on forearms Unspecified pruritic disorder documented in this encounter Care Teams Sleep Scientist Relationship Specialty Start Date End Date Liang Pierre DO [address] [place] [address] PCP - General 02/01/10 03/22/22 documented as of this encounter
--- OUTSIDE RECORDS SUMMARY | 2024-04-02 21:38 | XMS_ITS | Encounter Summary ---
Author Organization [facility] [place] [address] Care Team Providers Care Rn Intensive Care Unit Name Role Phone Liang Pierre DO Primary Care Provider [phone] Reason for Visit * (Routine) - Closed Specialty Diagnoses / Procedures Referred By Elfego sarmiento Referred To Contact Radiology Diagnoses Breast nodule Procedures Request for 2nd read Mammo Armani Brenner MD [address] [place] [address] [address] [place] [address] Referral ID Status Reason Start Date Expiration Date Visits Re quested Visits Authorized [id number] Closed 05/26/2021 05/26/2022 1 1 Encounter Details Date Type Department Care Team (Late st Contact Info) Description 05/26/2021 2:25 PM EDT Ancillary Procedure Radiology Library at [facility] [place] [address] Armani Brenner MD [address] [place] [address] [address] [place] [address] Breast nodule Social History Tobacco Use Types [...] appropriate Please note: The interpretation of the [facility] Breast Imaging Radiologist subspecialist may differ from the original radiologists interpretation. This is usually not due to a deficiency of the original interpreting radiologist, rather due to the greater skill level afforded by sub-specialization in the field and/or reasonable variations in interpretations. If you have a concern regarding the D-H interpretation you may contact the [facility] Breast Screen Printing Equipment Setter Office at . Thank you for letting us participate in the care of this patient. ??If you are a health care provider and have any questions regarding this report, please contact the number below. ??For patients who have questions please contact the health eye care professional that requested your imaging first. ? Electronically signed by: Victorina Zhang MD, [facility] ([phone]), at 05/26/2021 3:18 PM Narrative 05/26/2021 3:18 PM EDT INTERPRETATION OF OUTSIDE BREAST IMAGING I have been asked to consult on this patient by Dr. Brenner because he/she believes a review of this study may change or alter the care of this patient. STUDIES FROM: [facility] DATES: Bilateral screening mammograms 05/19/2021. Limited ultrasound of the RIGHT breast from 05/25/2021 CLINICAL HISTORY: Right breast solid nodule 6 o'clock; CAT 4; Sending Institution [facility]; Date of exam [id number]; [...] alter the care of thispatient. STUDIES FROM: [facility] DATES: Bilateral screening mammograms 05/19/2021. Limited ultrasound of theRIGHT breast from 05/25/2021 CLINICAL HISTORY: Right breast solid nodule 6 o'clock; CAT 4; Sending Institution [facility]; Date of exam [id number]; [...] appropriate Please note: The interpretation of the [facility] BreastImaging Radiologist subspecialist may differ from the original radiologists interpretation. This is usually not due to a deficiency of the original interpreting radiologist, rather due to the greater skill level affordedby sub-specialization in the field and/or reasonable variations ininterpretations. If you have a concern regarding the -H interpretation [facility] may [facility] Screen Printing Equipment Setter Office at . Thank you for letting us participate in the care of this patient. If youare a health care provider and have any questions regarding this report,please contact the number below. For patients who have questions please contactthe health eye care professional that requested your imaging first. Armani Brenner MD IMG OUTSIDE INTERPR ETATION ORDERABLES documented in this encounter Visit Diagnoses Diagnosis Breast nodule Other (abnormal) findings on radiological examination of breast documented in this encounter Care Teams Rn Intensive Care Unit Relationship Specialty Start Date End Date Liang Pierre DO [address] [place] [address] [address] [facility] [address] [place] [address] PCP - General 02/01/10 03/22/22 documented as of this encounter
--- OUTSIDE RECORDS SUMMARY | 2024-04-02 21:38 | XMS_ITS | Encounter Summary ---
Author Organization [facility] Address [facility] [place] [address] Care Team Providers Care Band Ripsaw Operator Name Role Phone Liang Pierre DO Primary Care Provider [phone] Encounter Details Date Type Department Care Team (Late st Contact Info) Description 05/25/2021 Ancillary Procedure Radiology Library at [facility] [place] [address] Armani Brenner MD [address] [place] [phone] Social History Tobacco Use Types Packs/Day [...] US Breast (05/25/2021 12:00 AM EDT) Narrative [facility] - 05/26/2021 12:15 PM EDT This exam is auto-finalizing. It's purpose is for storage only. Armani Brenner MD IMG FILM LIBRARY OR DERABLES [facility] [place] documented in this encounter Visit Diagnoses Not on filedocumented in this encounter Care Teams Band Ripsaw Operator Relationship Specialty Start Date End Date Liang Pierre DO [facility] [address] [place] [address] PCP - General 02/01/10 03/22/22 documented as of this encounter
--- OUTSIDE RECORDS SUMMARY | 2024-04-02 21:38 | XMS_ITS | Encounter Summary ---
Author Organization [facility] [place] [address] Care Team Providers Care Acoustic Warfare Analyst Name Role Phone Liang Pierre DO Primary Care Provider [phone] Encounter Details Date Type Department Care Team (Late st Contact Info) Description 05/18/2020 Ancillary Procedure Radiology Library at [facility] [place] [address] Armani Brenner MD [address] [place] [phone] Social History Tobacco Use Types Packs/Day [...] Only Mammo (05/18/2020 12:00 AM EST) Narrative [facility] - 05/26/2021 12:16 PM EDT This exam is auto-finalizing. It's purpose is for storage only. Armani Brenner MD IMG FILM LIBRARY OR DERABLES [facility] [place] documented in this encounter Visit Diagnoses Not on filedocumented in this encounter Care Teams Acoustic Warfare Analyst Relationship Specialty Start Date End Date Liang Pierre DO [address] [place] [address] [address] [place] [address] PCP - General 02/01/10 03/22/22 documented as of this encounter
--- OUTSIDE RECORDS SUMMARY | 2024-04-02 21:38 | XMS_ITS | Encounter Summary ---
Author Organization [facility] Address [address] [place] [address] Care Team Providers Care Informatics Consultant Name Role Phone Unavailable Primary Care Provider Unavailabl e Encounter Details Date Type Department Care Team (Late st Contact Info) Description 03/14/2001 Results Only [facility] [address] [place] [address] Marcio Adair MD [address] [place] [phone] Social History Tobacco Use Types Packs/Day Years [...] when reading/interpretin g unformatted reports. Name: ? JANEESUMAN ? Accession #: ? [id number] ? : [...] ? Received in Hollande' s fixative labelled [place] and EG junction is a betts-thorne, friable, 0.3 x 0.2 x0.2 cm soft tissue fragment. ??The specimen is entirely submitted in one cassette. ??(Dayton Wheeler)/dtl End of Report [facility] 03/14/2001 03/15/2001 9:3 1 EST us Marcio Adair MD PATHOLOGY ORDERABLES Final Res ult [facility] [address] [place] [address] documented in this encounter Visit Diagnoses Not on filedocumented in this encounter
--- OUTSIDE RECORDS SUMMARY | 2024-04-02 21:38 | XMS_ITS | Encounter Summary ---
Author Organization [facility] [place] [address] Care Team Providers Care Investigator Narcotics Name Role Phone Liang Pierre DO Primary Care Provider [phone] Encounter Details Date Type Department Care Team (Late st Contact Info) Description 05/19/2021 Ancillary Procedure Radiology Library at [facility] [place] [address] Armani Brenner MD [address] [place] [phone] Social History Tobacco Use Types Packs/Day [...] Only Mammo (05/19/2021 12:00 AM EST) Narrative [facility] - 05/26/2021 12:15 PM EDT This exam is auto-finalizing. It's purpose is for storage only. Armani Brenner MD IMG FILM LIBRARY OR DERABLES [facility] [place] documented in this encounter Visit Diagnoses Not on filedocumented in this encounter Care Teams Investigator Narcotics Relationship Specialty Start Date End Date Liang Pierre DO [address] [place] [address] [address] [place] [address] PCP - General 02/01/10 03/22/22 documented as of this encounter
--- OUTSIDE RECORDS SUMMARY | 2024-04-02 21:38 | XMS_ITS | Encounter Summary ---
Author Organization [facility] Address [facility] [place] [address] Care Team Providers Care Waiter And Cashier Name Role Phone Liang Pierre DO Primary Care Provider [phone] Encounter Details Date Type Department Care Team (Late st Contact Info) Description 05/14/2019 Ancillary Procedure Radiology Library at [facility] [place] [address] Armani Brenner MD [address] [place] [phone] Social History Tobacco Use Types Packs/Day [...] Only Mammo (05/14/2019 12:00 AM EST) Narrative [facility] - 05/26/2021 12:17 PM EDT This exam is auto-finalizing. It's purpose is for storage only. Armani Brenner MD IMG FILM LIBRARY OR DERABLES [place], [place] documented in this encounter Visit Diagnoses Not on filedocumented in this encounter Care Teams Waiter And Cashier Relationship Specialty Start Date End Date Liang Pierre DO [facility] [address] [place] [address] PCP - General 02/01/10 03/22/22 documented as of this encounter
--- OUTSIDE RECORDS SUMMARY | 2024-04-02 21:38 | XMS_ITS | Encounter Summary ---
Author Organization [facility] Address [address] [place] [address] Care Team Providers Care Supervisor Of Way Name Role Phone Liang Pierre DO Primary Care Provider [phone] Encounter Details Date Type Department Care Team (Late st Contact Info) Description 03/19/2017 Results Only [facility] [phone] Karlos Guevara MD [address] [place] [address] [place], [place] [phone] Social History Tobacco Use Types Packs/Day Years [...] (ASCP) 03/19/2017 4:56 PM End of Report [facility] 03/19/2017 16:4 2 EST 03/19/2017 16:42 EST us Karlos Guevara MD PATHOLOGY ORDERABLES Fin al Result [facility] [address] [place] [address] documented in this encounter Visit Diagnoses Not on filedocumented in this encounter Care Teams Supervisor Of Way Relationship Specialty Start Date End Date Liang Pierre DO PCP - General 01/19/15 03/19/17 documented as of this encounter
--- OUTSIDE RECORDS SUMMARY | 2024-04-02 21:38 | XMS_ITS | Encounter Summary ---
Author Organization [facility] Jonathon galarza [place] [address] Care Team Providers Care Outsole Beveler Name Role Phone Unavailable Primary Care Provider Unavailabl e Encounter Details Date Type Department Care Team (Late st Contact Info) Description 04/09/2009 Ancillary Procedure Radiology Library at [facility] [place] [phone] Armani Brenner MD [address] [place] [phone] Social History Tobacco Use Types Packs/Day Years [...] Only Mammo (04/09/2009 12:00 AM EST) Narrative [facility] - 05/26/2021 1:39 PM EDT This exam is auto-finalizing. It's purpose is for storage only. Armani Brenner MD IMG FILM LIBRARY OR DERABLES [place] documented in this encounter Visit Diagnoses Not on filedocumented in this encounter
--- OUTSIDE RECORDS SUMMARY | 2024-04-02 21:38 | XMS_ITS | Encounter Summary ---
Author Organization [facility] Jonathon geovanni [place] [address] Care Team Providers Care Radiosonde Specialist Name Role Phone Unavailable Primary Care Provider Unavailabl e Encounter Details Date Type Department Care Team (Late st Contact Info) Description 01/10/2006 Ancillary Procedure Radiology Library at [facility] [place] [phone] Armani Brenner MD [address] [place] [phone] Social History Tobacco Use Types Packs/Day Years [...]
--- OUTSIDE RECORDS SUMMARY | 2024-04-02 21:38 | XMS_ITS | Encounter Summary ---
Author Organization [facility] [place] [address] Care Team Providers Care Web Content Director Name Role Phone Liang Pierre DO Primary Care Provider [phone] Encounter Details Date Type Department Care Team (Late st Contact Info) Description 05/20/2019 Ancillary Procedure Radiology Library at [facility] [place] [address] Armani Brenner MD [address] [place] [phone] Social History Tobacco Use Types Packs/Day [...] US Breast (05/20/2019 12:00 AM EDT) Narrative [facility] - 05/26/2021 12:16 PM EDT This exam is auto-finalizing. It's purpose is for storage only. Armani Brenner MD IMG FILM LIBRARY OR DERABLES [facility] [place] documented in this encounter Visit Diagnoses Not on filedocumented in this encounter Care Teams Web Content Director Relationship Specialty Start Date End Date Liang Pierre DO [address] [place] [address] [address] [place] [address] PCP - General 02/01/10 03/22/22 documented as of this encounter
--- OUTSIDE RECORDS SUMMARY | 2024-04-02 21:38 | XMS_ITS | Encounter Summary ---
Author Organization [facility] Address [facility] [place] [address] Care Team Providers Care Managed Services Sales Consultant Name Role Phone Liang Pierre DO Primary Care Provider [phone] Encounter Details Date Type Department Care Team (Latest Contact Info) Description 06/03/2021 12:40 PM EDT - 06/03/2021 12:42 PM EDT Hospital [place] [address] Victorina Zhang MD [facility] [place] [address] Abnormal finding on breast imaging Discharge Disposition: [...] g 1 04/11/2011 hydrOXYzine (ATARAX) 10 mg tabletIndications:[place] titis Take by mouth. 1 or 2 [...] who have questions please contact the health health and social care teacher that requested your imaging first. ? Narrative [...] breast documented in this encounter Care Teams Managed Services Sales Consultant Relationship Specialty Start Date End Date Liang Pierre DO [address] [place] [address] PCP - General 02/01/10 03/22/22 documented as of this encounter
--- OUTSIDE RECORDS SUMMARY | 2024-04-02 21:38 | XMS_ITS | Encounter Summary ---
Author Organization [facility] Address [address] [place] [address] Care Team Providers Care Registered Account Administrator Name Role Phone Unavailable Primary Care Provider Unavailabl e Encounter Details Date Type Department Care Team (Late st Contact Info) Description 03/14/2007 Results Only [facility] - Maple conversion [address] [place] [address] Abebe Avila MD [address] [place] [address] Social History Tobacco Use Types Packs/Day Years [...] when reading/interpreti ng unformatted reports. Name: ? MARC SUMAN ? Accession #: ? [id number] ? : [...] cm. ??Submitted entirely in one cassette. ??(Dr. Castorena)/[facility] End of Report [facility] LA[facility]O 03/14/2007 03/15/2007 13: 58 EST us Abebe Avila MD PATHOLOGY ORDERABLES Final Result [facility] [address] [place] [address] documented in this encounter Visit Diagnoses Not on filedocumented in this encounter
--- OUTSIDE RECORDS SUMMARY | 2024-04-02 21:38 | XMS_ITS | Encounter Summary ---
Author Organization [facility] [place] [address] Care Team Providers Care Musical Instrument Maker Or Repairer Name Role Phone Liang Pierre DO Primary Care Provider [phone] Encounter Details Date Type Department Care Team (Late st Contact Info) Description 12/11/2013 Ancillary Procedure Radiology Library at [facility] [place] [address] Armani Brenner MD [address] [place] [phone] Social History Tobacco Use Types Packs/Day [...] Only Mammo (12/11/2013 12:00 AM EDT) Narrative [facility] - 05/26/2021 1:38 PM EDT This exam is auto-finalizing. It's purpose is for storage only. Armani Brenner MD IMG FILM LIBRARY OR DERABLES [facility] [place] documented in this encounter Visit Diagnoses Not on filedocumented in this encounter Care Teams Musical Instrument Maker Or Repairer Relationship Specialty Start Date End Date Liang Pierre DO [address] [place] [address] [address] [place] [address] PCP - General 02/01/10 03/22/22 documented as of this encounter
--- OUTSIDE RECORDS SUMMARY | 2024-04-02 21:38 | XMS_ITS | Encounter Summary ---
Author Organization [facility] [place] [address] Care Team Providers Care Directory Carrier Name Role Phone Liang Pierre DO Primary Care Provider [phone] Encounter Details Date Type Department Care Team (Late st Contact Info) Description 10/26/2015 Ancillary Procedure Radiology Library at [facility] [place] [address] Armani Brenner MD [address] [place] [phone] Social History Tobacco Use Types Packs/Day [...] Only Mammo (10/26/2015 12:00 AM EDT) Narrative [facility] - 05/26/2021 12:18 PM EDT This exam is auto-finalizing. It's purpose is for storage only. Armani Brenner MD IMG FILM LIBRARY OR DERABLES [facility] [place] documented in this encounter Visit Diagnoses Not on filedocumented in this encounter Care Teams Directory Carrier Relationship Specialty Start Date End Date Liang Pierre DO [address] [place] [address] [address] [place] [address] PCP - General 02/01/10 03/22/22 documented as of this encounter
--- OUTSIDE RECORDS SUMMARY | 2024-04-02 21:38 | XMS_ITS | Encounter Summary ---
Author Organization [facility] Address [facility] [place] [address] Care Team Providers Care Cigarette Filter Inspector Name Role Phone Liang Pierre DO Primary Care Provider [phone] Encounter Details Date Type Department Care Team (Latest Contact Info) Description 06/03/2021 12:43 PM EDT - 06/03/2021 11:59 PM EDT Hospital En[place] [address] Victorina Zhang MD [facility] [place] [address] Abnormal finding on breast imaging Discharge Disposition: [...] g 1 04/11/2011 hydrOXYzine (ATARAX) 10 mg tabletIndications:[place] titis Take by mouth. 1 or 2 [...] questions please contact the health resident care technician that requested your imaging first. ? Thank you for letting us participate in the care of this patient. ??If you are a health care provider and have any questions regarding this report, please contact the number below. ??For patients who have questions please contact the health resident care technician that requested your imaging first. ? Electronically signed by: Clarisa Cárdenas MD, [facility] ([phone]), at 06/03/2021 2:29 PM Narrative 06/03/2021 2:29 [...] breast documented in this encounter Care Teams Cigarette Filter Inspector Relationship Specialty Start Date End Date Liang Pierre DO [address] [place] [address] PCP - General 02/01/10 03/22/22 documented as of this encounter
--- OUTSIDE RECORDS SUMMARY | 2024-04-02 21:38 | XMS_ITS | Encounter Summary ---
Author Organization [facility] [place] [address] Care Team Providers Care Wave Solder Offbearer Name Role Phone Liang Pierre DO Primary Care Provider [phone] Encounter Details Date Type Department Care Team (Late st Contact Info) Description 05/26/2021 Telephone Hematology and Oncology at [facility] [place] [phone] Jenae Sandoval Social History Tobacco Use Types Packs/Day Years Used Date Smoking Tobacco: Never Sex and Gender Information Value Date Recorded Sex Assigned at Not on file Gender Identity Not on file Sexual Orientation Not on file documented as of this encounter Miscellaneous Notes * Telephone Encounter - Jenae Sandoval - 05/26/2021 10:07 AM EDT Maranda Tran 1950 [id number] Referring provider: Armani Brenner Date of Referral: 05.26.2021 Please review outside breast imaging dated: 05.25.2021 Reason for exam and clinical history: Right breast solid nodule 6 o'clcock Category: 4 Questions to be answered: ?more imaging, ? BX Sending Institution: [facility] Patient would like treatment at: [facility] Call pt at: Home Phone Not on file. documented in this encounter Plan of Treatment Not on file documented as of this encounter Visit Diagnoses Not on filedocumented in this encounter Care Teams Wave Solder Offbearer Relationship Specialty Start Date End Date Liang Pierre DO [address] [place] [address] [address] [place] [address] PCP - General 02/01/10 03/22/22 documented as of this encounter
--- OUTSIDE RECORDS SUMMARY | 2024-04-02 21:38 | XMS_ITS | Encounter Summary ---
Author Organization [facility] Jonathon galarza [place] [address] Care Team Providers Care Business Management Professor Name Role Phone Unavailable Primary Care Provider Unavailabl e Encounter Details Date Type Department Care Team (Late st Contact Info) Description 12/31/2003 Ancillary Procedure Radiology Library at [facility] [place] [phone] Armani Brenner MD [address] [place] [phone] Social History Tobacco Use Types Packs/Day Years [...] Only Mammo (12/31/2003 12:00 AM EDT) Narrative [facility] - 05/26/2021 1:41 PM EDT This exam is auto-finalizing. It's purpose is for storage only. Armani Brenner MD IMG FILM LIBRARY OR DERABLES [place] documented in this encounter Visit Diagnoses Not on filedocumented in this encounter
--- OUTSIDE RECORDS SUMMARY | 2024-04-02 21:38 | XMS_ITS | Referral Summary ---
Author Organization [facility] Address [address] [place] [address] Care Team Providers Care Telegraph Dispatcher Name Role Phone Marcio Rao MD Primary Care Provider [phone] Social History Tobacco Use Types Packs/Day Years [...] of Treatment Not on file Care Teams Telegraph Dispatcher Relationship Specialty Start Date End Date Marcio Rao MD [address] [place] [phone] PCP - General 03/20/17
--- OUTSIDE RECORDS SUMMARY | 2024-04-02 21:38 | XMS_ITS | Continuity of Care Document ---
Author Name [facility] Organization [facility] Care Team Providers Care Plumbing And Heating Contractor Name Role Phone [facility] Unavailable Unavailable Social History Combined list of available smoking, tobacco, and other social history from Department of Defense and Veterans Affairs facilities. Social History Type Response Date Comment Sourc e This section is an empty social history section. [facility]
--- OUTSIDE RECORDS SUMMARY | 2024-04-02 21:38 | XMS_ITS | Encounter Summary ---
Author Organization [facility] Jonathon geovanni [place] [address] Care Team Providers Care Log Data Technician Name Role Phone Unavailable Primary Care Provider Unavailabl e Encounter Details Date Type Department Care Team (Late st Contact Info) Description 02/14/2007 Ancillary Procedure Radiology Library at [facility] [place] [phone] Armani Brenner MD [address] [place] [phone] Social History Tobacco Use Types Packs/Day Years [...]
--- OUTSIDE RECORDS SUMMARY | 2024-04-02 21:38 | XMS_ITS | Encounter Summary ---
Author Organization [facility] Jonathon galarza [place] [address] Care Team Providers Care Blogs Manager Name Role Phone Unavailable Primary Care Provider Unavailabl e Encounter Details Date Type Department Care Team (Late st Contact Info) Description 01/02/2005 Ancillary Procedure Radiology Library at [facility] [place] [phone] Armani Brenner MD [address] [place] [phone] Social History Tobacco Use Types Packs/Day Years [...] Only Mammo (01/02/2005 12:00 AM EDT) Narrative [facility] - 05/26/2021 1:40 PM EDT This exam is auto-finalizing. It's purpose is for storage only. Armani Brenner MD IMG FILM LIBRARY OR DERABLES [place] documented in this encounter Visit Diagnoses Not on filedocumented in this encounter
--- OUTSIDE RECORDS SUMMARY | 2024-04-02 21:38 | XMS_ITS | Encounter Summary ---
Author Organization [facility] [place] [address] Care Team Providers Care Metal Stamping Machine Operator Name Role Phone Liang Pierre DO Primary Care Provider [phone] Encounter Details Date Type Department Care Team (Late st Contact Info) Description 05/20/2019 12:05 AM EDT Ancillary Procedure Radiology Library at [facility] [place] [address] Armani Brenner MD [address] [place] [phone] Social History Tobacco Use Types Packs/Day [...] Only Mammo (05/20/2019 12:05 AM EDT) Narrative [facility] - 05/26/2021 12:17 PM EDT This exam is auto-finalizing. It's purpose is for storage only. Armani Brenner MD IMG FILM LIBRARY OR DERABLES [facility] Jun MD documented in this encounter Visit Diagnoses Not on filedocumented in this encounter Care Teams Metal Stamping Machine Operator Relationship Specialty Start Date End Date Liang Pierre DO [address] [place] [address] PCP - General 02/01/10 03/22/22 documented as of this encounter
[2024-04-02 21:52] LABS: HCT 35.2 % (36.0-46.0); HGB 11.3 g/dL (11.2-15.7); MCH 31.2 pg (27.0-33.0); MCHC 32.1 % (32.0-36.0); MCV 97 fL (80-95); MPV 10.1 fL (8.0-11.0); Platelet Count 282 10^3/uL (130-400); RBC 3.62 10^6/uL (3.93-5.22); RDW 13.2 % (11.7-14.6); WBC 4.65 10^3/uL (4.4-10.8)
[2024-04-02 22:00] LABS: Iron 60 ug/dL (50-170); Total Iron Binding Capacity 251 ug/dL (250-450); Transferrin Sat 24 % (15-50)
[2024-04-02 22:13] LABS: ALT 19 U/L (14-59); AST 21 U/L (15-37); Albumin 3.6 g/dL (3.4-5.0); Alkaline Phosphatase 77 U/L (46-116); Anion Gap 7.2 mmol/L (3-11); BUN 23 mg/dL (7-18); Bilirubin, Total 0.39 mg/dL (0.2-1.0); CO2 28.8 mmol/L (21.0-32.0); CREATININE 1.3 mg/dL (0.55-1.02); Calcium 9.5 mg/dL (8.5-10.1); Calculated LDL 105 mg/dL (<100); Chloride 105 mmol/L (98-107); Cholesterol 180 mg/dL (<200); Estimated GFR 43.42 (mL/min/1.73m2); Ferritin 222 ng/mL (8-252); Glucose 87 mg/dL (74-106); HDL Cholesterol 62 mg/dL (40-60); Potassium 4.5 mmol/L (3.5-5.1); Sodium 141 mmol/L (136-145); Total Protein 6.8 g/dL (6.4-8.2); Triglyceride 66 mg/dL (<150)
== END 2024-04-02 21:37 | disposition home or self-care (01) ==
LOC: LBN 21:36
PROVIDERS: PCP Nurse Practitioner Family; Visit Provider Nurse Practitioner Family
DX: R53.83 Other fatigue (principal); E78.5 Hyperlipidemia, unspecified; Z12.39 Encounter for other screening for malignant neoplasm of breast; Z78.0 Asymptomatic menopausal state; R00.0 Tachycardia, unspecified; F32.9 Major depressive disorder, single episode, unspecified
CPT/HCPCS: 80053; 80061; 85027; 82728; 83540; 83550; 84443

== ENCOUNTER 2024-07-15 00:09 | Outpatient (CLI) | payer OTHER, SELFPAY ==
--- NOTE | 2024-07-15 07:00 | DI.MAMMO_ITS ---
Exam(s) MAMMO SCREENING EXAM: MAMMO SCREENING CLINICAL HISTORY: screening,z12.39. TECHNIQUE: Bilateral full field digital CC and MLO mammographic images were obtained with 3D tomosyn thesis and utilizing computer aided detection (CAD). COMPARISON: Prior mammograms were reviewed. FINDINGS: There has been no significant change in the appearance and distribution of the fibroglandular tissue. There are no new spiculated masses nor malignant appearing microcalcification groups. There is no significant architectural distortion nor skin thickening-retraction. IMPRESSION: No radiographic evidence of malignancy. BI-RADS Category 1 - Negative Breast Density - Category C - The breast are heterogeneously dense, which may obscure small masses. Breast density Category C or D implies that the patient has dense breast tissue. Dense breast tissue can make it harder to find cancer on a mammogram. Dense breast tissue is also associated with an incr eased risk of breast cancer. This information about the result of the mammogram report was provided to the patient to raise their awareness. Use this report when you speak with the patient about their risks for breast cancer, which includes their family history. At that time, you may recommend additional screening tests (Ultrasoun d or MRI) as these tests may add significant information. A negative radiographic report should not delay biopsy if a dominant or clinically suspicious mass is present. Up to ten percent of cancers are not identified on mammography. A negative report may reinforce clinical impression. Adenosis and dense breasts may obscure an underlying neoplasm. False positive reports average 6 to 10%. Patient will receive a letter notifying them of these results.
== END 2024-07-15 00:29 ==
LOC: DI 00:10
PROVIDERS: PCP Nurse Practitioner Family; Visit Provider Nurse Practitioner Family
DX: Z12.31 Encounter for screening mammogram for malignant neoplasm of breast (principal); E78.5 Hyperlipidemia, unspecified; R92.333 Mammographic heterogeneous density, bilateral breasts
CPT/HCPCS: 77063; 77067

== ENCOUNTER 2024-11-20 03:05 | Outpatient (CLI) | payer OTHER, SELFPAY ==
--- NOTE | 2024-11-20 06:00 | DI.DEXA_ITS ---
Exam(s) XR DEXA BONE DENSITY W/WO [facility] EXAM: XR DEXA BONE DENSITY W/WO [facility] CLINICAL HISTORY: screening for osteoporosis IN POSTMENOPAUSAL STATUS,Z78.0 TECHNIQUE: Routine DEXA evaluation of the lumbar spine, hip, or forearm. COMPARISON: Prior DEXA scan of 2004 FINDINGS: Performed on a [employer] unit. Lateral image: No compression fracture evident. Lumbar Spine total T-score: 3.6. This in the normal range. Prior reading in 2004 was 1.8. Hip total T-score:0.6, which is within normal range. Prior reading in 2005 was 0.3 Independent reading at the level of the femoral neck yields T-score of -0.4 which is within normal limits Forearm total T-score: -1.9 which is in the osteopenia range IMPRESSION: Bone mineral density measures in the normal range for lumbar spine and hip and in the osteopenia range for the forearm/wrist. Fracture risk is moderate for the form-wrist and low for the lumbar spine and hip. Note: Any spine fracture indicates 5x risk for subsequent spine fracture and 2x risk for subsequent hip fracture. World Health Organization criteria for BMD interpretation classify patients: Normal...... T- Score at or above -1.0 Osteopenic... T- Score between -1.0 and -2.5 Osteoporosis... T-Score at or below -2.5
== END 2024-11-20 03:25 ==
LOC: DI 03:05
PROVIDERS: PCP Nurse Practitioner Family; Visit Provider Nurse Practitioner Family
DX: Z78.0 Asymptomatic menopausal state (principal); E78.5 Hyperlipidemia, unspecified; Z13.820 Encounter for screening for osteoporosis
CPT/HCPCS: 77080